=== PATIENT | female | born 1940 | race Caucasian/White ===

== ENCOUNTER 2017-06-10 09:08 | Inpatient (IN) ==
[2017-06-10] MEDS ORDERED: ONDANSETRON 4 MG/2 ML VIAL IV STA (09:37)
[2017-06-10] MEDS ORDERED: SODIUM CHLORIDE 0.9% 500 ML IV STA (09:37)
[2017-06-10] MEDS ORDERED: MECLIZINE 25 MG TABLET PO STA (09:37)
--- NOTE | 2017-06-10 09:54 | Emergency Department Note ---
Mich Ledbetter Brittany, am scribing for, and in the presence of, Armani Espinal MD 09:44. Kylie Ledbetter Charles R, MD, personally performed the services described in this documentation, ascribed by Madonna Epps in my presence, and it is both accurate and complete [id number] . Arrival - Arrival Chief Complaint: Dizziness Stated Complaint: DIZZINESS,VOMITING ED Nursing Triage Note: PT STATES SHE WOKE UP TO A "THUNDER" NOISE IN HER HEAD, SO SHE GOT UP TO LOOK OUTSIDE AND BECAME VERY DIZZY, REALIZING THE NOISE WAS IN HER HEAD FOLLOWED BY VOMITING. PT DENIES HEADACHE. Mode of Arrival: Wheelchair Limitations: No Limitations Source: Patient, RN Notes Reviewed Time Seen by Provider: 06/10/17 09:22 - History of Present Illness HPI Narrative: Patient is a 76 y/o white female presenting to the ED for further evaluation of vertigo that onset this morning. Patient reports that upon waking she kept hearing what she describes as a thunderclap. Patient states that upon initially hearing this sound she got up to look outside the window to see if it was storming and upon realizing that there were no storms outside that she was hearing this sound in her head which alarmed her. Patient denies this being a headache, but describes a headache. Patient has a history of Migraines, but denies this current sensation being similar to typical Migraine headaches. Patient reports having some associated symptoms of vertigo, near syncope, and nausea. Patient denies having any chest pain, abdominal pain, neck pain, arm pain, or back pain. 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 PMHx of GERD, HTN, denies history of IDDM, NIDDM, CVA, or [place]. No other complaints. Allergies/Adverse Reactions: Allergies Allergy/AdvReac Type Severity Reaction Status Date / Time ketorolac [From Toradol] Allergy RASH Verified 06/10/17 09:15 Sulfa (Sulfonamide Allergy RASH Verified 06/10/17 09:15 Antibiotics) Home Medications: Home Medications Medication Instructions Recorded Confirmed Type Albuterol Sulfate [Albuterol 2.5 ml PO BID 02/22/17 05/21/17 History Liquid] Alendronate Sodium 35 mg PO Q7D 02/22/17 05/21/17 History Aspirin [Aspirin EC] 81 mg PO DAILY 02/22/17 05/21/17 History Calcium (Carb)/Vit D 600-400 1 tablet PO DAILY 02/22/17 05/21/17 History [Caltrate 600 + D] Cholecalciferol (Vitamin D3) 5,000 unit PO DAILY 02/22/17 05/21/17 History [Vitamin D3] Dexamethasone [Dexamethasone Tab] 2 mg PO Q3D 02/22/17 05/21/17 History Ferrous Sulfate Tab [Feosol 325 mg PO BID 02/22/17 05/21/17 History Original Tab] Loratadine Tab [Claritin Tab] 10 mg PO DAILY 02/22/17 05/21/17 History Montelukast Tab [Singulair Tab] 10 mg PO DAILY 02/22/17 05/21/17 History Multivitamin [Multivitamins] 1 each PO DAILY 02/22/17 05/21/17 History Omeprazole [Prilosec] 40 mg PO DAILY 02/22/17 05/21/17 History Theophylline ER Tab 150 mg PO BID 02/22/17 05/21/17 History Thyroid [[place] Thyroid] 30 mg PO DAILY 02/22/17 05/21/17 History Valsartan 160 mg PO DAILY 02/22/17 05/21/17 History traMADol TAB [Ultram] 50 mg PO Q6H PRN 02/22/17 05/21/17 History Albuterol/Ipratropium Neb [Duoneb] 3 ml RESP TX RT Q6H PRN 05/12/17 05/21/17 History Diclofenac 1% Gel [Voltaren 1% Gel] 1 applic TOP QID PRN 05/12/17 05/21/17 History [place]-3/Dha/Epa/Fish Oil [Fish Oil 1 each PO DAILY 05/12/17 05/21/17 History EC 1,200 mg Softgel] Polyethylene Glycol Powder 17 gm PO DAILY PRN 05/12/17 05/21/17 History [Miralax] Review of System - Review of System 12 point system: reviewed and no additional remarkable complaints except as stated - Review of System Eyes: Absent: vision change Head/Ears/Nose/Throat: Present: other ("thunderclap sounds") Gastrointestinal: Present: nausea. Absent: vomiting Neurological: Present: vertigo. Absent: headache Medical,Surgical,& Family Hx - Medical History Cardio: History of: Hypertension Neurology: History of: Migraine No history of: Seizures HEENT: History of: Eye Problem (glasses), Dental Problems (dentures) Endocrine: History of: Thyroid Disorder Respiratory: History of: Bronchitis, COPD, Pneumonia Gastrointestinal: History of: Diverticulitis/ Diverticulosis, GERD, Hemorrhoids Musculoskeletal: History of: Back/Neck Problems, Osteoporosis Hematology: History of: Anemia (takes iron) Other: History of: Cancer (skin cancer) - Surgical History HEENT Surgeries: Surgical HX of: Eye Surgery (cataract, retna surgery) Abdominal Surgeries: Surgical HX of: Abdominal Surgery, Appendectomy, Cholecystectomy, Colonoscopy, EGD Reproductive Surgeries: Surgical HX of;: Gynecologic Surgery, Hysterectomy Orthopedic Surgeries: Surgical HX of;: Orthopedic Surgery (shoulder, knee), Total Knee Replacement - Family History Family History: Reports;: Family Heart Disease (mother, sister), Family Hypertension Denies;: Family Anesthesia Reaction, Family Cancer (father - lung ca, sister - colon/rectal ca), Family Diabetes, Family Psychiatric Problems, Family Stroke - Social History Smoking Status: Never smoker Frequency of Alcohol Use: None Type of Drug Use: None Exam Vital Signs: Vital Signs Temperature 97.8 F 06/10/17 09:28 Pulse Rate 85 06/10/17 09:28 Respiratory Rate 18 06/10/17 09:28 Blood Pressure 173/76 06/10/17 09:28 O2 Sat by Pulse Oximetry 96 06/10/17 09:12 - General General appearance: alert, in no apparent distress, other (closes eyes on the examination table displaying obvious dizziness) - Head Head exam: Present: atraumatic, normocephalic, normal inspection - Eye Eye exam: Present: PERRL, EOMI, nystagmus (bilaterally). Absent: normal appearance (blind in R eye) - ENT ENT exam: Present: normal exam, normal oropharynx - Neck Neck exam: Present: normal inspection, full ROM, trachea midline - Chest Chest inspection: Present: normal inspection, symmetric chest wall rise - Respiratory Respiratory exam: Present: normal lung sounds bilaterally - Cardiovascular Cardiovascular exam: Present: regular rate, normal rhythm, normal heart sounds - Abdominal Exam Abdominal exam: Present: soft, normal bowel sounds. Absent: tenderness - Extremities Exam Extremities exam: Present: normal inspection - Back Exam Back exam: Present: normal inspection - Neurological Exam Neurological exam: Present: alert, oriented X3, CN II-XII intact. Absent: motor sensory deficit - Psychiatric Psychiatric exam: Present: normal affect, normal mood - Skin Skin exam: Present: warm, dry Course - Reevaluation(s) Reevaluation #1: Patient is still symptomatic still dizzy still nauseated still feeling weak even though she has a normal workup. Patient does not have a headache never had a headache just had a thunder moves sensation in her brain/head Time: 12:24 - Consultations Consultation #1: Hospitalist will admit patient Time: 12:24 Results - Labs CBC & BMP: 06/10/17 10:05 06/10/17 10:05 Lab Results: I have reviewed the patients labs Labs: Laboratory Tests 06/10/17 10:05 WBC 13.2 H RBC 5.22 Hgb 14.4 Hct 45.4 MCHC 31.7 L Plt Count 242 Lymph % (Auto) 15.3 L Neut # (Auto) 9.7 H [place] # (Auto) 0.9 H Laboratory Tests 06/10/17 10:05 INR 1.0 PT Patient/Control Mix 10.2 Laboratory Tests 06/10/17 06/10/17 10:05 10:05 Sodium 143 Potassium 4.0 Chloride 106 Carbon Dioxide 30 BUN 24 H Creatinine 1.10 H BUN/Creatinine Ratio 21.00 H Glucose 104 Troponin I < 0.015 B-Natriuretic Peptide 85 Total Protein 6.4 Laboratory Tests 06/10/17 11:24 Urine Color Yellow Urine Appearance Clear Urine pH 5.0 Ur Specific [place] 1.015 Urine Protein Negative Urine Glucose (UA) Negative Urine Ketones Negative Urine Blood Negative Urine Nitrate Negative Urine Bilirubin Negative Urine Urobilinogen < 2.0 H Urine Leukocytes Negative Urine RBC 2 Urine WBC 1 Ur Squamous Epith Cells Occasional Urine Mucus Occasional - Diagnostic Findings Procedure: Chest x-ray: report reviewed by me (1. Stable mild cardiomegaly. 2. Prominent hiatal hernia. 3. Mild new right basilar atelectasis.), CT: report reviewed by me (CT Head: Stable white matter changes, likely related to chronic microvascular ischemia. No acute intracranial process is seen.) Disposition Clinical Impression: Benign paroxysmal positional vertigo, Nausea & vomiting, Generalized weakness Case discussed with: patient, patient's family Disposition: Still a Patient Condition: Stable Time of Disposition: 12:25
[2017-06-10] MEDS ORDERED: ONDANSETRON 4 MG/2 ML VIAL ONE (09:59)
[2017-06-10] MEDS ORDERED: MECLIZINE 25 MG TABLET ONE (10:00)
--- NOTE | 2017-06-10 10:02 | CT Report ---
CT of the head without contrast. Indication: Dizziness. Comparison: July 16, 2010. There is calcific plaque present within the intracranial internal carotid arteries. There is generalized prominence of the ventricles and sulci consistent with atrophy of aging. There is no mass effect or midline shift. There is no evidence of acute hemorrhage. No cortical infarcts are seen at this time. There are mild stable areas of low density within the periventricular white matter. The calvarium is intact. Included paranasal sinuses and the mastoid air cells are clear. Impression: Stable white matter changes, likely related to chronic microvascular ischemia. No acute intracranial process is seen. The CT exam was performed using one or more of the following dose reduction techniques: Automated exposure control, adjustment of the mA and/or kV according to patient size, or use of iterative reconstruction technique. PROCEDURE INTERPRETED AT [facility] DEPARTMENT OF RADIOLOGY Final Report Signed by: Dr. Yajaira Monk
--- NOTE | 2017-06-10 10:04 | XRay Report ---
Single view of the chest. Indication: Shortness of breath. Comparison: February 22, 2017. The heart is enlarged. There is a large hiatal hernia present. The pulmonary vasculature is normal. The lung thomas are free of infiltrate. There is mild new atelectasis at the right base. No pneumothorax. No pleural effusion. Degenerative changes of both shoulders. Impression: 1. Stable mild cardiomegaly. 2. Prominent hiatal hernia. 3. Mild new right basilar atelectasis. PROCEDURE INTERPRETED AT [facility] DEPARTMENT OF RADIOLOGY Final Report Signed by: Dr. Yajaira Monk
[2017-06-10 10:28] LABS: Basophils # 0.1 10*3/uL (0.0-0.2); Basophils % 0.6 % (0.0-0.8); Eosinophils # 0.5 10*3/uL (0.0-0.87); Eosinophils % 3.6 % (0.00-10.9); Hematocrit 45.4 VOL% (35.7-47.0); Hemoglobin 14.4 GM/DL (12.0-16.0); Immature Granulocytes % 0.5 %; Immature Granulocytes Absolute 0.06 #; Lymphocytes % 15.3 % (21.3-54.2); Mean Corpuscular HGB Conc 31.7 GM/DL (32-36); Mean Corpuscular Hemoglobin 28 PG (27-34); Mean Platelet Volume 10.1 FL (9.6-12.0); Monocytes # 0.9 10*3/uL (0.11-0.8); Monocytes % 6.6 % (1.7-12.7); Neutrophils # 9.7 10*3/uL (1.4-7.4); Neutrophils % 73.4 % (38.7-73.9); Platelet Count 242 T/CUMM (130-400); Red Blood Count 5.22 MC/CUMM (3.8-5.5); Red Cell Distribution Width 13.3 % (9.3-17.3); White Blood Count 13.2 T/CUMM (4-12)
[2017-06-10 10:38] LABS: PT Patient Result 10.2 SECS
[2017-06-10 11:04] LABS: Alanine Aminotransferase 21 U/L (13-56); Albumin 3.4 G/DL (3.4-5.0); Alkaline Phosphatase 64 U/L (45-117); Aspartate Amino Transferase 14 U/L (0-37); Blood Urea Nitrogen 24 MG/DL (7-18); Calcium 9.2 MG/DL (8.5-10.1); Glucose 104 MG/DL (74-106); Magnesium 2.3 MG/DL (1.8-2.4); Sodium 143 MMOL/L (136-145); Total Protein 6.4 G/DL (6.4-8.3); Troponin I Only < 0.015 NG/ML (0.00-0.045)
[2017-06-10 11:37] LABS: Apearance,Urine CLEAR (Clear); Bilirubin,Urine Negative (Negative); Blood, Urine Negative (Negative); Glucose,Urine (UA) Negative (Negative); Ketones,Urine Negative (Negative); Mucus,Urine Occasional /LPF (Occasional); Nitrite,Urine Negative (Negative); Protein,Urine Negative; RBC,Urine 2 /HPF (0-4); Squamous Epithelial Cell,Urine Occasional /HPF (0-10); Urine Color Yellow (Yellow); Urine Specific Gravity 1.015 (1.001-1.035); Urine Urobilinogen < 2.0 EU/DL (0.2-1.0); WBC,Urine 1 /HPF (0-6)
[2017-06-10] MEDS ORDERED: ACETAMINOPHEN 325 MG TABLET PO PRN (14:33)
--- NOTE | 2017-06-10 15:35 | Hospitalist History & Physical ---
<Diogenes Richey - Last Filed: 06/10/17 16:53> History of Present Illness History of present illness: Patient seen and examined independently of MIDDLE STITCHER Franco, agree with history, assessment and plan as documented. 76 y/o WF who reports hearing thunder this morning, when she went to investigate she discovered that the sound was in her head. This was associated with dizziness, nausea and vomiting. She now reports seeing a black dot when she closes her eyes. Patient is blind in her right eye. CT head in the ED did not show an acute process. Will check an MRI. Obtain orthostatic vitals, place on heart monitor. Will consult neurology. Will also check a tsh, free t4 and theophylline level Home Medications Medication Instructions Recorded Confirmed Type Albuterol Sulfate [Albuterol 2.5 ml PO BID 02/22/17 06/10/17 History Liquid] Alendronate Sodium 35 mg PO TU 02/22/17 06/10/17 History Aspirin [Aspirin EC] 81 mg PO QAM 02/22/17 06/10/17 History Cholecalciferol (Vitamin D3) 5,000 unit PO QA 02/22/17 06/10/17 History [Vitamin D3] Dexamethasone [Dexamethasone Tab] 2 mg PO QOTHER DAY 02/22/17 06/10/17 History Ferrous Sulfate Tab [Feosol 325 mg PO BID 02/22/17 06/10/17 History Original Tab] Loratadine Tab [Claritin Tab] 10 mg PO QAM 02/22/17 06/10/17 History Montelukast Tab [Singulair Tab] 10 mg PO BEDTIME 02/22/17 06/10/17 History Multivitamin [Multivitamins] 1 each PO QAM 02/22/17 06/10/17 History Omeprazole [Prilosec] 40 mg PO QAM 02/22/17 06/10/17 History Theophylline ER Tab 150 mg PO BID 02/22/17 06/10/17 History Valsartan 160 mg PO QAM 02/22/17 06/10/17 History Albuterol/Ipratropium Neb [Duoneb] 3 ml RESP TX RT Q6H PRN 05/12/17 06/10/17 History [place]-3/Dha/Epa/Fish Oil [Fish Oil 1 each PO QAM 05/12/17 06/10/17 History EC 1,200 mg Softgel] Polyethylene Glycol Powder 17 gm PO DAILY PRN 05/12/17 06/10/17 History [Miralax] Albuterol Liquid [Proventil Liquid] 2 mg PO TID 06/10/17 06/10/17 History Calcium Carbonate/Vitamin D3 1 each PO QAM 06/10/17 06/10/17 History [Calcium 600-Vit D3 800 Tablet] Thyroid [[place] Thyroid] 60 mg PO DAILY@0700 06/10/17 06/10/17 History Tramadol HCl [Tramadol Tab] 50 mg PO Q6H PRN 06/10/17 06/10/17 History Allergies Allergy/AdvReac Type Severity Reaction Status Date / Time ketorolac [From Toradol] Allergy RASH Verified 06/10/17 09:15 Sulfa (Sulfonamide Allergy RASH Verified 06/10/17 09:15 Antibiotics) Exam - Constitutional Vitals: Period Temp Pulse Resp BP Sys/[place] Pulse Ox Last 24 Hr 97.8 F-97.9 F 80-85 17-20 152-173/70-78 96-98 Results - Labs CBC & BMP: 06/10/17 10:05 06/10/17 10:05 <Melvin Francomichaelnunuyany - Last Filed: 06/10/17 17:16> Assessment and Plan (1) Benign paroxysmal positional vertigo Status: Acute Assessment and plan: Admit to monitored bed. Consult neuro to evaluate. TSH in am. CT negative. MRI pending. Orthostatic vital signs. Current Visit: Yes (2) Generalized weakness Status: Acute Current Visit: Yes (3) Nausea & vomiting Status: Acute Assessment and plan: prn jemma Current Visit: Yes History of Present Illness Chief complaint: dizziness/nausea History of present illness: Ms. Herring is a 76 year old white female with a history of hypertension, migraine , thyroid disorder and bronchitis, COPD, and pneumonia that presented to the ED for further evaluation of symptoms that started this morning. Patient states that this morning when she woke up she heard which she describes as loud claps of thunder. This noise persisted for a while and she got up to look out the window. It was at that point she realized there were no storms outside. She became alarmed and also dizzy. Pt. also reports near syncope and nausea. Pt. denies any chest pain but mild shortness of breath which is common because she has COPD. Pt. states she called her daughter for assistance. She was brought into the ED. CT head was negative. Pt. was admitted. She was examined in room 242 with daughter present. Neuro will be consulted. Case has been discussed with Dr. Richey. Medical,Surgical,& Family Hx - Medical History Cardio: History of: Hypertension Neurology: History of: Migraine No history of: Seizures HEENT: History of: Eye Problem (glasses), Dental Problems (dentures) Endocrine: History of: Thyroid Disorder Respiratory: History of: Bronchitis, COPD, Pneumonia Gastrointestinal: History of: Diverticulitis/ Diverticulosis, GERD, Hemorrhoids , GI Problems (hernia) Musculoskeletal: History of: Back/Neck Problems, Osteoporosis Hematology: History of: Anemia (takes iron) Other: History of: Cancer (skin cancer) - Surgical History HEENT Surgeries: Surgical HX of: Eye Surgery (cataract, retna surgery) Abdominal Surgeries: Surgical HX of: Abdominal Surgery, Appendectomy, Cholecystectomy, Colonoscopy, EGD Reproductive Surgeries: Surgical HX of;: Gynecologic Surgery, Hysterectomy Orthopedic Surgeries: Surgical HX of;: Orthopedic Surgery (shoulder, knee ( miniscus tear)), Total Knee Replacement - Family History Family History: Reports;: Family Heart Disease (mother, sister), Family Hypertension Denies;: Family Anesthesia Reaction, Family Cancer (father - lung ca, sister - colon/rectal ca), Family Diabetes, Family Psychiatric Problems, Family Stroke - Social History Smoking Status: Never smoker Frequency of Alcohol Use: None Type of Drug Use: None Lives With:: Alone Functional capacity: independent ambulation - Constitutional Constitutional: Absent: chills, fever(s), night sweats - EENT Eyes: Present: blurry vision Ears: Present: other (loud claps of thunder heard in ears). Absent: ear pain, tinnitus - Cardiovascular Cardiovascular: Present: dyspnea on exertion. Absent: edema - Gastrointestinal Gastrointestinal: Present: nausea. Absent: abdominal pain - Genitourinary Genitourinary: Absent: difficulty urinating - Neurological Neurological: Present: dizziness. Absent: confusion Exam - Constitutional Vitals: Period Temp Pulse Resp BP Sys/[place]ivera Pulse Ox Last 24 Hr 97.8 F-97.9 F 80-85 17-20 152-173/70-78 96-98 General appearance: no acute distress, over weight - Head Head exam: Present: normal inspection, normocephalic - Eye Eye exam: Present: EOMI Pupils: Present: DAVE - Respiratory Respiratory exam: Present: clear to auscultation bilaterally. Absent: wheezes - Cardiovascular Cardiovascular exam: Present: regular rate and rhythm - GI/Abdominal GI/Abdominal exam: Present: normal bowel sounds, soft. Absent: tenderness - Extremities Exam Extremities exam: Present: normal capillary refill, full ROM. Absent: edema - Neurological Exam Neurological exam: Present: alert, oriented X3 - Psychiatric Psychiatric exam: Present: normal affect, normal mood Results - Labs CBC & BMP: 06/10/17 10:05 06/10/17 10:05 Lab Results: I have reviewed the past 24 hour labs
[2017-06-10] MEDS: SODIUM CHLORIDE 0.9% 1,000 ML IV SCH (15:57)
[2017-06-10] MEDS ORDERED: ALBUTEROL/IPRATROPIUM 3 ML NEB RESP TX PRN (16:17)
[2017-06-10] MEDS ORDERED: POLYETHYLENE GLYCOL POWDER 17 GM PACK PO PRN (16:17)
[2017-06-10] MEDS ORDERED: traMADol 50 MG TABLET PO PRN (16:17)
[2017-06-10] MEDS ORDERED: ONDANSETRON 4 MG/2 ML VIAL IV PRN (16:52)
[2017-06-10] MEDS: FERROUS SULFATE 325 MG TABLET PO SCH (20:46)
[2017-06-10] MEDS: MONTELUKAST 10 MG TABLET PO SCH (20:46)
[2017-06-10] MEDS: ALBUTEROL 0.4 MG/ML 30 ML/BOTTLE PO SCH (20:47)
[2017-06-10] MEDS ORDERED: THEOPHYLLINE ER 300 MG TABLET PO SCH (21:00)
[2017-06-11] MEDS: THYROID 60 MG TABLET PO SCH (06:32)
[2017-06-11 06:49] LABS: Basophils # 0.1 10*3/uL (0.0-0.2); Basophils % 0.9 % (0.0-0.8); Eosinophils # 0.3 10*3/uL (0.0-0.87); Eosinophils % 4.7 % (0.00-10.9); Hematocrit 41.7 VOL% (35.7-47.0); Hemoglobin 12.8 GM/DL (12.0-16.0); Immature Granulocytes % 0.3 %; Immature Granulocytes Absolute 0.02 #; Lymphocytes # 1.8 10*3/uL (1.4-4.0); Lymphocytes % 27.7 % (21.3-54.2); Mean Corpuscular HGB Conc 30.7 GM/DL (32-36); Mean Corpuscular Hemoglobin 28 PG (27-34); Mean Corpuscular Volume 89.5 FL (87-102); Mean Platelet Volume 10.1 FL (9.6-12.0); Monocytes # 0.7 10*3/uL (0.11-0.8); Monocytes % 10.6 % (1.7-12.7); Neutrophils # 3.6 10*3/uL (1.4-7.4); Neutrophils % 55.8 % (38.7-73.9); Platelet Count 196 T/CUMM (130-400); Red Blood Count 4.66 MC/CUMM (3.8-5.5); Red Cell Distribution Width 13.4 % (9.3-17.3); White Blood Count 6.4 T/CUMM (4-12)
[2017-06-11 07:39] LABS: Calcium 8.5 MG/DL (8.5-10.1); Free T4 (Free Thyroxine) 1.03 NG/DL (0.76-1.46); Magnesium 2.5 MG/DL (1.8-2.4); Osmolality,Calculated 287.7 MOS/KG (273-304); Potassium 4.1 MMOL/L (3.5-5.1); Risk Ratio 3.81; Thyroid Stimulating Hormone 1.01 uIU/ml (0.358-3.74); VLDL CHOLESTEROL 21.4 MG/DL
[2017-06-11] MEDS: FERROUS SULFATE 325 MG TABLET PO SCH ×2 (09:52→20:30)
[2017-06-11] MEDS: CALCIUM (CARBONATE)/VITAMIN D 600 MG-400 UNIT TABLET PO SCH (09:52)
[2017-06-11] MEDS: PANTOPRAZOLE 40 MG TABLET PO SCH (09:52)
[2017-06-11] MEDS: LORATADINE 10 MG TABLET PO SCH (09:52)
[2017-06-11] MEDS: CHOLECALCIFEROL 1,000 UNIT TABLET PO SCH (09:52)
[2017-06-11] MEDS: ALBUTEROL 0.4 MG/ML 30 ML/BOTTLE PO SCH ×3 (09:53→21:00)
[2017-06-11] MEDS: SODIUM CHLORIDE 0.9% 1,000 ML IV SCH (12:08)
--- NOTE | 2017-06-11 15:14 | Neurology Consult Note ---
History of Present Illness History of present illness: Ms. Herring is a 76 year old right-handed white lady with a history of hypertension , migraine, thyroid disorder and bronchitis, COPD, and pneumonia that presented to the ED for further evaluation of symptoms that started yesterday morning. Patient reported that yesterday morning when she woke up she heard which she describes as loud claps of thunder. This noise persisted for a while and she got up to look out the window. It was at that point she realized there were no storms outside. She denies having any headache but clearly seriously that it was tender sound in the ear. She became alarmed and also dizzy. She was also developed nausea and vomiting. Daughter reported that she has been having headache for last 2-3 weeks. Pt. states she called her daughter for assistance. She was brought into the ED. CT head was negative. Pt. was admitted. MRI has been ordered. She never had a stroke in her life. She lives by herself during the day but somebody is there all the time at night. Home Medications Medication Instructions Recorded Confirmed Type Albuterol Sulfate [Albuterol 2.5 ml PO BID 02/22/17 06/10/17 History Liquid] Alendronate Sodium 35 mg PO TU 02/22/17 06/10/17 History Aspirin [Aspirin EC] 81 mg PO QAM 02/22/17 06/10/17 History Cholecalciferol (Vitamin D3) 5,000 unit PO QAM 02/22/17 06/10/17 History [Vitamin D3] Dexamethasone [Dexamethasone Tab] 2 mg PO QOTHER DAY 02/22/17 06/10/17 History Ferrous Sulfate Tab [Feosol 325 mg PO BID 02/22/17 06/10/17 History Original Tab] Loratadine Tab [Claritin Tab] 10 mg PO QAM 02/22/17 06/10/17 History Montelukast Tab [Singulair Tab] 10 mg PO BEDTIME 02/22/17 06/10/17 History Multivitamin [Multivitamins] 1 each PO QAM 02/22/17 06/10/17 History Omeprazole [Prilosec] 40 mg PO QAM 02/22/17 06/10/17 History Theophylline ER Tab 150 mg PO BID 02/22/17 06/10/17 History Valsartan 160 mg PO QAM 02/22/17 06/10/17 History Albuterol/Ipratropium Neb [Duoneb] 3 ml RESP TX RT Q6H PRN 05/12/17 06/10/17 History [place]-3/Dha/Epa/Fish Oil [Fish Oil 1 each PO QAM 05/12/17 06/10/17 History EC 1,200 mg Softgel] Polyethylene Glycol Powder 17 gm PO DAILY PRN 05/12/17 06/10/17 History [Miralax] Albuterol Liquid [Proventil Liquid] 2 mg PO TID 06/10/17 06/10/17 History Calcium Carbonate/Vitamin D3 1 each PO QAM 06/10/17 06/10/17 History [Calcium 600-Vit D3 800 Tablet] Thyroid [[place] Thyroid] 60 mg PO DAILY@0700 06/10/17 06/10/17 History Tramadol HCl [Tramadol Tab] 50 mg PO Q6H PRN 06/10/17 06/10/17 History Allergies Allergy/AdvReac Type Severity Reaction Status Date / Time ketorolac [From Toradol] Allergy RASH Verified 06/10/17 09:15 Sulfa (Sulfonamide Allergy RASH Verified 06/10/17 09:15 Antibiotics) 12 point system: reviewed and no additional remarkable complaints except as stated Medical,Surgical,& Family Hx - Medical History Cardio: History of: Hypertension Neurology: History of: Migraine No history of: Seizures HEENT: History of: Eye Problem (glasses), Dental Problems (dentures) Endocrine: History of: Thyroid Disorder Respiratory: History of: Bronchitis, COPD, Pneumonia Gastrointestinal: History of: Diverticulitis/ Diverticulosis, GERD, Hemorrhoids , GI Problems (hernia) Musculoskeletal: History of: Back/Neck Problems, Osteoporosis Hematology: History of: Anemia (takes iron) Other: History of: Cancer (skin cancer) - Surgical History HEENT Surgeries: Surgical HX of: Eye Surgery (cataract, retna surgery) Abdominal Surgeries: Surgical HX of: Abdominal Surgery, Appendectomy, Cholecystectomy, Colonoscopy, EGD Reproductive Surgeries: Surgical HX of;: Gynecologic Surgery, Hysterectomy Orthopedic Surgeries: Surgical HX of;: Orthopedic Surgery (shoulder, knee ( miniscus tear)), Total Knee Replacement - Family History Family History: Reports;: Family Heart Disease (mother, sister), Family Hypertension Denies;: Family Anesthesia Reaction, Family Cancer (father - lung ca, sister - colon/rectal ca), Family Diabetes, Family Psychiatric Problems, Family Stroke - Social History Smoking Status: Never smoker Frequency of Alcohol Use: None Type of Drug Use: None Exam - Constitutional Vitals: Period Temp Pulse Resp BP Sys/[place]iver[place] Pulse Ox Last 24 Hr 96 F-101.1 F 84-100 15-28 127-148/47-71 91-95 Exam: GENERAL: Patient is in no acute distress. NECK: Neck is supple. There is no JVD. No carotid bruits present. No thyroid masses. CVS: First and second heart sounds are normal. There is no S3 present. Regular rate and rhythm. RESPIRATORY: Lungs are clear to auscultation without any rales or rhonchi. ABDOMEN: Soft and non-tender. Bowel sounds are present. There is no hepatosplenomegaly. EXT: There is no palpable edema. Peripheral pulses are present. Skin: No rashes Central Nervous system: General: Alert, awake and Oriented x 3 Speech: Fluent Comprehension: Intact and normal Facial expressions: Normal Cranial Nerves: CN1/Olfactory: Normal CN II/ Optic: Normal, Visual Villaseñor unreliable CN III, and : DAVE & EOMI CN V: Normal & intact CN VII: face is symmetric CNVIII: Normal CN XI/X/XI/XII: Intact and Normal Motor: Bulk and Tone is normal. Strength in the right 3-4/5 Strength in the left 3-4/5 Sensory: Grossly intact for all the modalities of PP, LT and temp sense Reflexes: 1+ and symmetrical Cerebellar function: Normal finger to nose and heel to perez testing. Toes: Equivocal Gait: Not tested Results - Labs CBC & BMP: 06/11/17 06:29 06/11/17 06:29 Assessment and Plan (1) New onset headache Status: Acute Assessment and plan: Agree with MRI of the brain. Current Visit: Yes (2) Dizziness and giddiness Status: Acute Assessment and plan: This could very well be due to labyrinthitis or possibly basilar migraine. Continue current management. She seems to be feeling better Thank you for the consult We will follow her along with you Current Visit: Yes
--- NOTE | 2017-06-11 16:17 | Hospitalist Progress Note ---
Assessment and Plan (1) Dizziness Status: Acute Assessment and plan: With associated N/V MRI pending Neurology on board Orthostatic vitals negative Current Visit: Yes (2) Nausea & vomiting Status: Acute Current Visit: Yes (3) New onset headache Status: Acute Current Visit: Yes Hospitalist: Subjective Interval history: No acute events overnight. Patient feels better today. She does still have dizziness with movement. Exam - Constitutional Vitals: Period Temp Pulse Resp BP Sys/Rivera Pulse Ox Last 24 Hr 96 F-101.1 F 84-100 15-28 127-148/47-71 91-95 General appearance: over weight - Head Head exam: Present: normocephalic, atraumatic - Eye Eye exam: Present: EOMI Pupils: Present: DAVE - ENT ENT exam: Present: normal exam - Neck Neck exam: Present: normal inspection - Respiratory Respiratory exam: Present: clear to auscultation bilaterally. Absent: rhonchi, wheezes - Cardiovascular Cardiovascular exam: Present: regular rate and rhythm - GI/Abdominal GI/Abdominal exam: Present: normal bowel sounds, soft. Absent: tenderness, rebound - Extremities Exam Extremities exam: Present: normal inspection - Back Exam Back exam: Present: normal inspection - Neurological Exam Neurological exam: Present: alert, oriented X3 - Psychiatric Psychiatric exam: Present: normal affect, normal mood - Skin Skin exam: Present: warm, intact Results - Labs CBC & BMP: 06/11/17 06:29 06/11/17 06:29
--- NOTE | 2017-06-11 16:24 | Magnetic Resonance Report ---
Exam: MR head/brain wo con Date: 06/11/2017 4:00 AM Comparison: CT brain 06/10/2017 Indication: Dizziness, vomiting Technique:[Multiple acquisitions were obtained including sagittal T1, coronal T2, and axial ADC, diffusion, FLAIR, T2, GRE, and T1 scans without contrast only. Scans were obtained on a 1.5 Adia magnet.] Findings: The ventricles are normal in size with no midline displacement. The pituitary has a normal appearance and the cerebellar tonsils are normal in their location. No acute infarction is identified on the diffusion scans. No evidence of hemorrhage, mass, or extracerebral collection. Diffuse atrophy with scattered FLAIR/T2 hyperintensities. Enlarged perivascular spaces which represent a normal variant. Minimal mucosal thickening/fluid in the paranasal sinuses. No acute findings in the orbits, temporal bones, or [place]. Impression: No acute intracranial pathology identified. Persistent diffuse cerebral atrophy with minimal microvascular disease. Minimal mucosal thickening in the paranasal sinuses. PROCEDURE INTERPRETED AT [facility] DEPARTMENT OF RADIOLOGY Final Report Signed by: Dr. Nadine Ku
[2017-06-11] MEDS: MONTELUKAST 10 MG TABLET PO SCH (20:30)
[2017-06-12 03:07] LABS: Basophils # 0.1 10*3/uL (0.0-0.2); Basophils % 0.6 % (0.0-0.8); Eosinophils # 0.4 10*3/uL (0.0-0.87); Eosinophils % 4.5 % (0.00-10.9); Hematocrit 39.6 VOL% (35.7-47.0); Hemoglobin 12.3 GM/DL (12.0-16.0); Immature Granulocytes % 0.1 %; Immature Granulocytes Absolute 0.01 #; Lymphocytes # 1.8 10*3/uL (1.4-4.0); Lymphocytes % 22.9 % (21.3-54.2); Mean Corpuscular HGB Conc 31.1 GM/DL (32-36); Mean Corpuscular Hemoglobin 28 PG (27-34); Mean Corpuscular Volume 88.8 FL (87-102); Mean Platelet Volume 9.9 FL (9.6-12.0); Monocytes # 0.8 10*3/uL (0.11-0.8); Monocytes % 10.3 % (1.7-12.7); Neutrophils # 4.8 10*3/uL (1.4-7.4); Neutrophils % 61.6 % (38.7-73.9); Platelet Count 171 T/CUMM (130-400); Red Blood Count 4.46 MC/CUMM (3.8-5.5); Red Cell Distribution Width 13.2 % (9.3-17.3); White Blood Count 7.7 T/CUMM (4-12)
[2017-06-12 03:40] LABS: Calcium 8.7 MG/DL (8.5-10.1); Osmolality,Calculated 290.4 MOS/KG (273-304); Potassium 3.9 MMOL/L (3.5-5.1)
[2017-06-12 03:41] LABS: Calcium 8.7 MG/DL (8.5-10.1); Magnesium 2.3 MG/DL (1.8-2.4); Osmolality,Calculated 284.8 MOS/KG (273-304); Potassium 3.9 MMOL/L (3.5-5.1)
[2017-06-12] MEDS: THYROID 60 MG TABLET PO SCH (06:37)
[2017-06-12] MEDS ORDERED: DEXAMETHASONE 4 MG TABLET PO SCH (09:00)
[2017-06-12] MEDS: CHOLECALCIFEROL 1,000 UNIT TABLET PO SCH (10:00)
[2017-06-12] MEDS: FERROUS SULFATE 325 MG TABLET PO SCH (10:01)
[2017-06-12] MEDS: LORATADINE 10 MG TABLET PO SCH (10:01)
[2017-06-12] MEDS: PANTOPRAZOLE 40 MG TABLET PO SCH (10:01)
[2017-06-12] MEDS: CALCIUM (CARBONATE)/VITAMIN D 600 MG-400 UNIT TABLET PO SCH (10:01)
[2017-06-12 12:11] VITALS: BP 157/77
[2017-06-12] MEDS: SODIUM CHLORIDE 0.9% 1,000 ML IV SCH (12:32)
[2017-06-12] MEDS ORDERED: BUTALBITAL/ACETAMIN/CAFFEINE 50-325-40 MG TABLET PO PRN (12:39)
--- NOTE | 2017-06-12 12:39 | Neurology Progress Note ---
Neurology - PN : Subjective Interval history: Patient seems to be doing much better. She had slight headache this morning and heard thunder type issue again this morning as well. However she is doing pretty well at this point. MRI of the brain is unremarkable for any acute pathology. Exam (Progress Note) - Constitutional Vitals: Period Temp Pulse Resp BP Sys/Rivera Pulse Ox Last 24 Hr 97.4 F-98.7 F 80-96 0-24 138-167/69-78 91-97 Exam: GENERAL: Patient is in no acute distress. NECK: Neck is supple. There is no JVD. No carotid bruits present. No thyroid masses. CVS: First and second heart sounds are normal. There is no S3 present. Regular rate and rhythm. RESPIRATORY: Lungs are clear to auscultation without any rales or rhonchi. ABDOMEN: Soft and non-tender. Bowel sounds are present. There is no hepatosplenomegaly. EXT: There is no palpable edema. Peripheral pulses are present. Skin: No rashes Central Nervous system: General: Alert, awake and Oriented x 3 Speech: Fluent Comprehension: Intact and normal Facial expressions: Normal Cranial Nerves: CN1/Olfactory: Normal CN II/ Optic: Normal, Visual [place] unreliable CN III, and : DAVE & EOMI CN V: Normal & intact CN VII: face is symmetric CNVIII: Normal CN XI/X/XI/XII: Intact and Normal Motor: Bulk and Tone is normal. Strength in the right 4/5 Strength in the left 4/5 Sensory: Grossly intact for all the modalities of PP, LT and temp sense Reflexes: 1+ and symmetrical Cerebellar function: Normal finger to nose and heel to perez testing. Toes: Equivocal Gait: Able to get up and walk Results - Labs CBC & BMP: 06/12/17 02:53 06/12/17 02:53 Assessment and Plan (1) New onset headache Status: Acute Assessment and plan: Add Elavil 25 mg p.o. at bedtime Fioricet 1 tablet every 4 to every 6 as needed Okay to go home when okay with PCP Follow-up in 4 week Sign off please call as needed Current Visit: Yes (2) Dizziness and giddiness Status: Acute Assessment and plan: This could very well be due to labyrinthitis or possibly basilar migraine. Continue current management. She seems to be feeling better Thank you for the consult We will follow her along with you Current Visit: Yes Specialty Discharge - Follow Up or Referrals Follow up with: Ace Lemus MD [Physician] - 1 Month
--- NOTE | 2017-06-12 13:58 | Discharge Summary ---
Hospital Course - Hospital Course Hospital Course: Ms. Herring is a 76 year old white female with a history of hypertension, migraine , thyroid disorder and COPD admitted with headache with associated thunderclap sound and dizziness. Orthostatic vitals were negative. CT head and MRI did not show any acute process. Neurology was consulted. She was started on Elavil with Fioicet prn. She has now reached maximal benefit of inpatient stay and will be discharged to home. She will follow-up with Dr. Lemus in 4 weeks. - Time spent with patient Time with patient DS: Greater than 30 minutes (35) Diagnosis - Discharge Diagnosis (1) Dizziness Status: Resolved (2) Nausea & vomiting Status: Resolved (3) New onset headache Status: Resolved Specialty Discharge - Follow Up or Referrals Follow up with: Ace Lemus MD [Physician] - 1 Month Discharge Plan - Discharge Data Disposition: Disch To Home/Self Care Condition at Discharge: Stable Discharge Diet: advance to your usual diet Activity: increase activity as tolerated Hygiene: no restrictions Weight Bearing at Discharge: weight bear as tolerated Contact your physician if you experience:: Shortness of breath, pain uncontrolled by pain medications - Discharge Medications New Amitriptyline [Elavil] 25 mg PO BEDTIME #30 tablet Butalbital/Acet/Caff 50-325-40 [Fioricet 50-325-40 mg Tablet] 1 tablet PO Q6H PRN #30 tablet PRN Reason: Headache Continue Albuterol Sulfate [Albuterol Liquid] 2.5 ml PO BID Alendronate Sodium 35 mg PO TU Aspirin [Aspirin EC] 81 mg PO QAM Cholecalciferol (Vitamin D3) [Vitamin D3] 5,000 unit PO QAM Dexamethasone [Dexamethasone Tab] 2 mg PO QOTHER DAY Ferrous Sulfate Tab [Feosol Original Tab] 325 mg PO BID Loratadine Tab [Claritin Tab] 10 mg PO QAM Montelukast Tab [Singulair Tab] 10 mg PO BEDTIME Omeprazole [Prilosec] 40 mg PO QAM Theophylline ER Tab 150 mg PO BID Valsartan 160 mg PO QAM Calcium Carbonate/Vitamin D3 [Calcium 600-Vit D3 800 Tablet] 1 each PO QAM Albuterol Liquid [Proventil Liquid] 2 mg PO TID Multivitamin [Multivitamins] 1 each PO QAM [place]-3/Dha/Epa/Fish Oil [Fish Oil EC 1,200 mg Softgel] 1 each PO QAM Polyethylene Glycol Powder [Miralax] 17 gm PO DAILY PRN PRN Reason: Constipation Albuterol/Ipratropium Neb [Duoneb] 3 ml RESP TX RT Q6H PRN PRN Reason: Shortness Of Breath/Wheezing Thyroid [[place] Thyroid] 60 mg PO DAILY@0700 Tramadol HCl [Tramadol Tab] 50 mg PO Q6H PRN PRN Reason: Pain - Follow Up or Referral Follow Up: Ace Leums MD [Physician] - 1 Month - Forms/Instructions Exam - Constitutional Vitals: Period Temp Pulse Resp BP Sys/Rivera Pulse Ox Last 24 Hr 97.4 F-98.7 F 80-96 0-24 138-167/69-78 91-97 General appearance: over weight - Head Head exam: Present: normocephalic, atraumatic - Eye Eye exam: Present: EOMI Pupils: Present: DAVE - ENT ENT exam: Present: normal exam - Neck Neck exam: Present: normal inspection - Respiratory Respiratory exam: Present: clear to auscultation bilaterally. Absent: rhonchi, wheezes - Cardiovascular Cardiovascular exam: Present: regular rate and rhythm - GI/Abdominal GI/Abdominal exam: Present: normal bowel sounds, soft. Absent: tenderness, rebound - Extremities Exam Extremities exam: Present: normal inspection - Back Exam Back exam: Present: normal inspection - Neurological Exam Neurological exam: Present: alert, oriented X3 - Psychiatric Psychiatric exam: Present: normal affect, normal mood - Skin Skin exam: Present: warm, intact Discharge Results Procedures and tests throughout hospitalization: Pending Orders 06/10/17 14:47 Blood Culture Stat Labs on day of discharge: Labs from last 24 hours 06/12/17 06/12/17 06/12/17 02:53 02:53 02:53 WBC 7.7 RBC 4.46 Hgb 12.3 Hct 39.6 MCV 88.8 MCH 28 MCHC 31.1 L RDW 13.2 Plt Count 171 MPV 9.9 Neut % (Auto) 61.6 Lymph % (Auto) 22.9 [place] % (Auto) 10.3 Eos % (Auto) 4.5 Baso % (Auto) 0.6 Neut # (Auto) 4.8 Lymph # (Auto) 1.8 [place] # (Auto) 0.8 Eos # (Auto) 0.4 Baso # (Auto) 0.1 Immature Gran % 0.1 Nucleated RBC % 0.0 Immature Gran # 0.01 Nucleated RBCs # 0.00 Immature Plt Fraction 0.0 Sodium 144 147 H Potassium 3.9 3.9 Chloride 108 H 108 H Carbon Dioxide 34 H 33 H Anion Gap 5.9 9.9 BUN 11 11 Creatinine 0.90 0.80 GFR Calculation 71 82 BUN/Creatinine Ratio 12.00 13.00 Glucose 98 99 Calculated Osmolality 284.8 290.4 Calcium 8.7 8.7 Magnesium 2.3 Preliminary micro results at discharge 06/10/17 14:47 Blood Culture - Preliminary Blood No growth at 1 day 06/10/17 14:47 Blood Culture - Preliminary Blood No growth at 1 day DS: Provider Date of admission: 06/10/17 12:28 Primary care physician: Aiden Russ MD Attending physician on admission: Diogenes Richey MD Consults: 06/10/17 13:33 Consult to Pastoral Services [CONS] Routine Comment: Pastoral Screen: Request Pipe Washer Visit 06/10/17 16:43 Consult to Physician [CONS] Routine Comment: Consulting Provider: Ace Lemus When should Consulting Provider be notified: In am Discharging clinician: Diogenes Richey MD
[2017-06-12] MEDS ORDERED: AMITRIPTYLINE 10 MG TABLET PO SCH (21:00)
[2017-06-15] MEDS ORDERED: Alendronate Sodium [Alendronate Sodium] 35 MG Tablet PO SCH (09:00)
== END 2017-06-12 16:10 | disposition home or self-care (01) | DRG 103 ==
LOC: N.ED 09:08 → N.EDINP 12:28 → N.2E 13:27
PROVIDERS: ADMIT Internal Medicine; ATTEND Internal Medicine

== ENCOUNTER 2019-07-28 10:38 | Observation (INO) ==
[2019-07-28] MEDS ORDERED: methylPREDNISolone SOD SUC 125 MG/2 ML VIAL IV STA (11:27)
[2019-07-28] MEDS ORDERED: ALBUTEROL/IPRATROPIUM 3 ML NEB RESP TX STA (11:28)
[2019-07-28 12:04] LABS: Basophils % 0.3 % (0.0-0.8); Eosinophils % 0.2 % (0.00-10.9); Hemoglobin 13.3 GM/DL (12.0-16.0); Immature Granulocytes % 0.6 %; Immature Granulocytes Absolute 0.09 #; Lymphocytes # 1.9 10*3/uL (1.4-4.0); Lymphocytes % 12.6 % (21.3-54.2); Mean Corpuscular HGB Conc 30.9 GM/DL (32-36); Mean Corpuscular Volume 87.8 FL (87-102); Mean Platelet Volume 10.2 FL (9.6-12.0); Monocytes % 6.7 % (1.7-12.7); Neutrophils % 79.6 % (38.7-73.9); Platelet Count 275 T/CUMM (130-400); Red Cell Distribution Width 13.9 % (9.3-17.3); White Blood Count 15.2 T/CUMM (4-12)
[2019-07-28 12:20] LABS: Alanine Aminotransferase 18 U/L (13-56); Alkaline Phosphatase 76 U/L (45-117); Aspartate Amino Transferase 14 U/L (0-37); Bilirubin,Total < 0.39 MG/DL (0.2-1.0); Blood Urea Nitrogen 20 MG/DL (7-18); Calcium 9.2 MG/DL (8.5-10.1); Estimated Glom Filtration Rate 40 ML/MIN; Glucose 95 MG/DL (74-106); Osmolality,Calculated 288.8 MOS/KG (273-304)
[2019-07-28] MEDS ORDERED: ACETAMINOPHEN 325 MG TABLET PO PRN (12:22)
[2019-07-28] MEDS ORDERED: ONDANSETRON 4 MG/2 ML VIAL IV PRN (12:22)
[2019-07-28] MEDS ORDERED: SODIUM CHLORIDE 0.9% 1,000 ML IV STA (12:37)
[2019-07-28] MEDS ORDERED: POLYETHYLENE GLYCOL POWDER 17 GM PACK PO PRN (14:56)
[2019-07-28] MEDS ORDERED: DICLOFENAC SODIUM 75 MG TABLET PO PRN (14:56)
[2019-07-28] MEDS ORDERED: DENOSUMAB 60 MG/ML SYRINGE SUBCUT SCH (15:00)
[2019-07-28] MEDS: ALBUTEROL/IPRATROPIUM 3 ML NEB RESP TX SCH ×2 (15:22→21:56)
[2019-07-28] MEDS ORDERED: ENOXAPARIN 40 MG/0.4 ML SYRINGE SUBCUT SCH (21:00)
[2019-07-28] MEDS ORDERED: MONTELUKAST 10 MG TABLET PO SCH (21:00)
[2019-07-28] MEDS: THEOPHYLLINE ER 300 MG TABLET PO SCH (21:43)
[2019-07-28] MEDS: guaiFENesin/DM ER 600-30 MG TABLET PO SCH (21:44)
[2019-07-28] MEDS: FERROUS SULFATE 325 MG TABLET PO SCH (21:44)
[2019-07-28] MEDS: ALBUTEROL 0.4 MG/ML 30 ML/BOTTLE PO SCH (21:53)
[2019-07-28] MEDS ORDERED: LOSARTAN 50 MG TABLET PO SCH (22:00)
[2019-07-29] MEDS: ALBUTEROL/IPRATROPIUM 3 ML NEB RESP TX SCH ×3 (00:50→07:00)
[2019-07-29 01:49] LABS: Basophils % 0.2 % (0.0-0.8); Hematocrit 41.1 VOL% (35.7-47.0); Hemoglobin 12.2 GM/DL (12.0-16.0); Immature Granulocytes % 1.2 %; Immature Granulocytes Absolute 0.15 #; Lymphocytes # 0.7 10*3/uL (1.4-4.0); Lymphocytes % 5.9 % (21.3-54.2); Mean Corpuscular HGB Conc 29.7 GM/DL (32-36); Mean Corpuscular Volume 90.5 FL (87-102); Monocytes % 2.7 % (1.7-12.7); Platelet Count 254 T/CUMM (130-400); Red Blood Count 4.54 MC/CUMM (3.8-5.5); Red Cell Distribution Width 14.2 % (9.3-17.3); White Blood Count 12.5 T/CUMM (4-12)
[2019-07-29 01:50] LABS: Calcium 8.9 MG/DL (8.5-10.1); Osmolality,Calculated 294.7 MOS/KG (273-304)
[2019-07-29] MEDS ORDERED: THYROID 60 MG TABLET PO SCH (06:30)
[2019-07-29 07:45] VITALS: BP 118/47
[2019-07-29] MEDS: FERROUS SULFATE 325 MG TABLET PO SCH (08:45)
[2019-07-29] MEDS: THEOPHYLLINE ER 300 MG TABLET PO SCH (08:45)
[2019-07-29] MEDS: guaiFENesin/DM ER 600-30 MG TABLET PO SCH (08:45)
[2019-07-29] MEDS: ALBUTEROL 0.4 MG/ML 30 ML/BOTTLE PO SCH (08:45)
[2019-07-29] MEDS ORDERED: predniSONE 10 MG TABLET PO SCH (09:00)
[2019-07-29] MEDS ORDERED: MULTIVITAMIN (CENTRUM) TABLET PO SCH (09:00)
[2019-07-29] MEDS ORDERED: CALCIUM (CARBONATE)/VITAMIN D 600 MG-400 UNIT TABLET PO SCH (09:00)
[2019-07-29] MEDS ORDERED: CHOLECALCIFEROL 5,000 UNIT TABLET PO SCH (09:00)
[2019-07-29] MEDS ORDERED: OMEGA 3 ACID ETHYL ESTERS 1 GM CAPSULE PO SCH (09:00)
[2019-07-29] MEDS ORDERED: PANTOPRAZOLE 40 MG TABLET PO SCH (09:00)
[2019-07-29] MEDS ORDERED: ASPIRIN EC 81 MG TABLET PO SCH (09:00)
== END 2019-07-29 11:02 | disposition home or self-care (01) ==
LOC: N.ED 10:38 → N.EDINP 10:38 → N.2E 14:11
PROVIDERS: ADMIT Internal Medicine Geriatric Medicine; ATTEND Internal Medicine Geriatric Medicine

== ENCOUNTER 2019-12-29 20:01 | Inpatient (IN) ==
[2019-12-29] MEDS ORDERED: SODIUM CHLORIDE 0.9% 1,000 ML IV STA (20:45)
[2019-12-29 21:23] LABS: Basophils # 0.1 10*3/uL (0.0-0.2); Basophils % 0.3 % (0.0-0.8); Hemoglobin 12.7 GM/DL (12.0-16.0); Immature Granulocytes % 0.5 %; Lymphocytes # 0.8 10*3/uL (1.4-4.0); Lymphocytes % 3.9 % (21.3-54.2); Mean Corpuscular HGB Conc 30.2 GM/DL (32-36); Mean Corpuscular Volume 85.9 FL (87-102); Mean Platelet Volume 9.4 FL (9.6-12.0); Monocytes % 3.6 % (1.7-12.7); Neutrophils % 91.7 % (38.7-73.9); Platelet Count 284 T/CUMM (130-400); Red Blood Count 4.89 MC/CUMM (3.8-5.5); Red Cell Distribution Width 14.3 % (9.3-17.3); White Blood Count 20.6 T/CUMM (4-12)
[2019-12-29 21:42] LABS: Alanine Aminotransferase 10 U/L (13-56); Albumin 2.9 G/DL (3.4-5.0); Alkaline Phosphatase 68 U/L (45-117); Aspartate Amino Transferase 12 U/L (0-37); Bilirubin,Total < 0.39 MG/DL (0.2-1.0); Blood Urea Nitrogen 24 MG/DL (7-18); Calcium 9.4 MG/DL (8.5-10.1); Glucose 113 MG/DL (74-106); Osmolality,Calculated 279.7 MOS/KG (273-304)
[2019-12-29 21:43] LABS: Estimated Glom Filtration Rate 0 ML/MIN
[2019-12-29 21:48] LABS: Lymphocytes 5 % (20-55); Platelet Estimate Normal; Segmented Neutrophils 94 % (50-85); Total Cells Counted 100
[2019-12-29 23:08] LABS: Apearance,Urine CLOUDY (Clear); Bilirubin,Urine Negative (Negative); Blood, Urine Small mg/dL (Negative); Glucose,Urine (UA) Negative (Negative); Hyaline Casts,Urine 44 /LPF (0-3); Ketones,Urine Negative (Negative); Mucus,Urine Occasional /LPF (Occasional); Nitrite,Urine Negative (Negative); Protein,Urine Negative; RBC,Urine 20 /HPF (0-4); Squamous Epithelial Cell,Urine Occasional /HPF (0-10); Urine Color Yellow (Yellow); Urine Specific Gravity 1.017 (1.001-1.035); Urine Urobilinogen < 2.0 EU/DL (0.2-1.0); WBC,Urine 280 /HPF (0-6)
[2019-12-29] MEDS ORDERED: PIPERACILLIN/TAZOBACTAM 3,375 MG in SODIUM CHLORIDE 0.9% 100 ML IV STA (23:37)
[2019-12-30] MEDS ORDERED: PROMETHAZINE 25 MG/1 ML VIAL IM PRN (01:28)
[2019-12-30] MEDS ORDERED: hydrALAZINE 20 MG/1 ML VIAL IV PRN (01:28)
[2019-12-30] MEDS ORDERED: NICOTINE 21 MG/24 HR PATCH TRANSDERM PRN (01:28)
[2019-12-30] MEDS ORDERED: diphenhydrAMINE CAP 25 MG CAPSULE PO PRN (01:28)
[2019-12-30] MEDS ORDERED: MORPHINE 4 MG/1 ML VIAL IV PRN (01:28)
[2019-12-30] MEDS ORDERED: ACETAMINOPHEN 325 MG TABLET PO PRN (01:28)
[2019-12-30] MEDS ORDERED: guaiFENesin/DM ER 600-30 MG TABLET PO PRN (01:28)
[2019-12-30] MEDS: SODIUM CHLORIDE 0.9% 1,000 ML IV SCH ×3 (01:45→23:10)
[2019-12-30] MEDS: MEROPENEM 500 MG in SODIUM CHLORIDE 0.9% 100 ML IV SCH ×4 (06:00→20:36)
[2019-12-30 06:22] LABS: Basophils # 0.1 10*3/uL (0.0-0.2); Basophils % 0.5 % (0.0-0.8); Eosinophils # 0.2 10*3/uL (0.0-0.87); Eosinophils % 1.7 % (0.00-10.9); Hematocrit 36.2 VOL% (35.7-47.0); Hemoglobin 11.1 GM/DL (12.0-16.0); Immature Granulocytes % 0.5 %; Immature Granulocytes Absolute 0.05 #; Lymphocytes % 9.1 % (21.3-54.2); Mean Corpuscular HGB Conc 30.7 GM/DL (32-36); Mean Corpuscular Volume 85.8 FL (87-102); Mean Platelet Volume 9.7 FL (9.6-12.0); Monocytes % 5.8 % (1.7-12.7); Neutrophils % 82.4 % (38.7-73.9); Platelet Count 222 T/CUMM (130-400); Red Blood Count 4.22 MC/CUMM (3.8-5.5); Red Cell Distribution Width 14.6 % (9.3-17.3); White Blood Count 10.6 T/CUMM (4-12)
[2019-12-30 06:52] LABS: Alanine Aminotransferase < 9 U/L (13-56); Albumin 2.4 G/DL (3.4-5.0); Alkaline Phosphatase 59 U/L (45-117); Aspartate Amino Transferase 10 U/L (0-37); Blood Urea Nitrogen 19 MG/DL (7-18); Calcium 8.5 MG/DL (8.5-10.1); Estimated Glom Filtration Rate 63 ML/MIN; Glucose 95 MG/DL (74-106); Osmolality,Calculated 284.1 MOS/KG (273-304)
[2019-12-30] MEDS ORDERED: ENOXAPARIN 30 MG/0.3 ML SYRINGE SUBCUT SCH (08:00)
[2019-12-30] MEDS: DOCUSATE SODIUM 100 MG CAPSULE PO SCH ×2 (08:50→22:08)
[2019-12-30] MEDS ORDERED: PANTOPRAZOLE 40 MG TABLET PO SCH (09:00)
[2019-12-30] MEDS ORDERED: POLYETHYLENE GLYCOL POWDER 17 GM PACK PO PRN (09:35)
[2019-12-30] MEDS: THEOPHYLLINE ER 300 MG TABLET PO SCH ×2 (10:27→22:08)
[2019-12-30] MEDS: predniSONE 5 MG TABLET PO SCH (10:27)
[2019-12-30] MEDS: ALBUTEROL 2.5 MG/3 ML NEB RESP TX PRN (14:25)
[2019-12-30] MEDS: ALBUTEROL 0.4 MG/ML 30 ML/BOTTLE PO SCH ×2 (14:34→21:00)
[2019-12-30] MEDS: MONTELUKAST 10 MG TABLET PO SCH (20:28)
[2019-12-30] MEDS: LOSARTAN 50 MG TABLET PO SCH (20:29)
[2019-12-30] MEDS: FERROUS SULFATE 325 MG TABLET PO SCH (22:05)
[2019-12-31] MEDS: MEROPENEM 500 MG in SODIUM CHLORIDE 0.9% 100 ML IV SCH ×4 (03:30→20:33)
[2019-12-31] MEDS: THYROID 60 MG TABLET PO SCH (05:48)
[2019-12-31] MEDS: PANTOPRAZOLE 40 MG TABLET PO SCH (07:40)
[2019-12-31] MEDS: ENOXAPARIN 40 MG/0.4 ML SYRINGE SUBCUT SCH (09:11)
[2019-12-31] MEDS: predniSONE 5 MG TABLET PO SCH (09:12)
[2019-12-31] MEDS: THEOPHYLLINE ER 300 MG TABLET PO SCH ×2 (09:12→20:33)
[2019-12-31] MEDS: FERROUS SULFATE 325 MG TABLET PO SCH ×2 (09:12→20:34)
[2019-12-31] MEDS: LORATADINE 10 MG TABLET PO SCH (09:12)
[2019-12-31] MEDS: ASPIRIN EC 81 MG TABLET PO SCH (09:12)
[2019-12-31] MEDS: DOCUSATE SODIUM 100 MG CAPSULE PO SCH ×2 (09:12→20:48)
[2019-12-31] MEDS: ALBUTEROL 0.4 MG/ML 30 ML/BOTTLE PO SCH ×2 (09:46→15:10)
[2019-12-31] MEDS: SODIUM CHLORIDE 0.9% 1,000 ML IV SCH ×3 (10:10→20:41)
[2019-12-31] MEDS: ALBUTEROL 2.5 MG/3 ML NEB RESP TX PRN (14:22)
[2019-12-31] MEDS: LOSARTAN 50 MG TABLET PO SCH (20:34)
[2019-12-31] MEDS: MONTELUKAST 10 MG TABLET PO SCH (20:44)
[2020-01-01] MEDS: MEROPENEM 500 MG in SODIUM CHLORIDE 0.9% 100 ML IV SCH ×4 (03:28→21:32)
[2020-01-01] MEDS: SODIUM CHLORIDE 0.9% 1,000 ML IV SCH ×2 (05:40→16:26)
[2020-01-01] MEDS: THYROID 60 MG TABLET PO SCH (05:41)
[2020-01-01] MEDS: ALBUTEROL 0.4 MG/ML 30 ML/BOTTLE PO SCH ×4 (07:01→21:31)
[2020-01-01] MEDS: FERROUS SULFATE 325 MG TABLET PO SCH ×2 (08:46→21:31)
[2020-01-01] MEDS: ASPIRIN EC 81 MG TABLET PO SCH (08:46)
[2020-01-01] MEDS: THEOPHYLLINE ER 300 MG TABLET PO SCH ×2 (08:46→21:31)
[2020-01-01] MEDS: LORATADINE 10 MG TABLET PO SCH (08:46)
[2020-01-01] MEDS: predniSONE 5 MG TABLET PO SCH (08:47)
[2020-01-01] MEDS: DOCUSATE SODIUM 100 MG CAPSULE PO SCH ×2 (08:47→21:31)
[2020-01-01] MEDS: PANTOPRAZOLE 40 MG TABLET PO SCH (08:47)
[2020-01-01] MEDS: ENOXAPARIN 40 MG/0.4 ML SYRINGE SUBCUT SCH (08:47)
[2020-01-01] MEDS: ALBUTEROL 2.5 MG/3 ML NEB RESP TX PRN (21:00)
[2020-01-01] MEDS: MONTELUKAST 10 MG TABLET PO SCH (21:31)
[2020-01-01] MEDS: LOSARTAN 50 MG TABLET PO SCH (21:31)
[2020-01-02] MEDS: SODIUM CHLORIDE 0.9% 1,000 ML IV SCH ×2 (02:04→11:03)
[2020-01-02] MEDS: MEROPENEM 500 MG in SODIUM CHLORIDE 0.9% 100 ML IV SCH ×4 (02:05→21:11)
[2020-01-02] MEDS: THYROID 60 MG TABLET PO SCH (05:42)
[2020-01-02 06:00] LABS: Calcium 8.8 MG/DL (8.5-10.1); Osmolality,Calculated 286.7 MOS/KG (273-304)
[2020-01-02 06:10] LABS: Basophils # 0.1 10*3/uL (0.0-0.2); Eosinophils # 0.4 10*3/uL (0.0-0.87); Eosinophils % 5.4 % (0.00-10.9); Hematocrit 35.4 VOL% (35.7-47.0); Hemoglobin 10.6 GM/DL (12.0-16.0); Immature Granulocytes % 0.4 %; Immature Granulocytes Absolute 0.03 #; Lymphocytes # 1.7 10*3/uL (1.4-4.0); Lymphocytes % 25.6 % (21.3-54.2); Mean Corpuscular HGB Conc 29.9 GM/DL (32-36); Mean Corpuscular Volume 88.1 FL (87-102); Mean Platelet Volume 10.4 FL (9.6-12.0); Monocytes % 7.5 % (1.7-12.7); Neutrophils % 60.1 % (38.7-73.9); Platelet Count 217 T/CUMM (130-400); Red Blood Count 4.02 MC/CUMM (3.8-5.5); Red Cell Distribution Width 14.4 % (9.3-17.3); White Blood Count 6.7 T/CUMM (4-12)
[2020-01-02 06:20] LABS: Hypochromasia Slight; Ovalocytes Slight; Platelet Estimate Adequate
[2020-01-02] MEDS: PANTOPRAZOLE 40 MG TABLET PO SCH (07:29)
[2020-01-02] MEDS: ENOXAPARIN 40 MG/0.4 ML SYRINGE SUBCUT SCH (08:32)
[2020-01-02] MEDS: THEOPHYLLINE ER 300 MG TABLET PO SCH ×2 (08:37→21:10)
[2020-01-02] MEDS: FERROUS SULFATE 325 MG TABLET PO SCH ×2 (08:38→21:11)
[2020-01-02] MEDS: ASPIRIN EC 81 MG TABLET PO SCH (08:38)
[2020-01-02] MEDS: LORATADINE 10 MG TABLET PO SCH (08:39)
[2020-01-02] MEDS: predniSONE 5 MG TABLET PO SCH (08:40)
[2020-01-02] MEDS: DOCUSATE SODIUM 100 MG CAPSULE PO SCH ×2 (09:01→21:11)
[2020-01-02] MEDS: ALBUTEROL 0.4 MG/ML 30 ML/BOTTLE PO SCH ×3 (09:24→23:57)
[2020-01-02] MEDS: ALBUTEROL 2.5 MG/3 ML NEB RESP TX PRN (18:40)
[2020-01-02] MEDS: LOSARTAN 50 MG TABLET PO SCH (21:11)
[2020-01-02] MEDS: MONTELUKAST 10 MG TABLET PO SCH (21:12)
[2020-01-03] MEDS: MEROPENEM 500 MG in SODIUM CHLORIDE 0.9% 100 ML IV SCH ×4 (02:29→20:50)
[2020-01-03] MEDS: THYROID 60 MG TABLET PO SCH (05:51)
[2020-01-03] MEDS: PANTOPRAZOLE 40 MG TABLET PO SCH (06:06)
[2020-01-03] MEDS: THEOPHYLLINE ER 300 MG TABLET PO SCH ×2 (09:45→20:49)
[2020-01-03] MEDS: ENOXAPARIN 40 MG/0.4 ML SYRINGE SUBCUT SCH (09:45)
[2020-01-03] MEDS: ASPIRIN EC 81 MG TABLET PO SCH (09:45)
[2020-01-03] MEDS: predniSONE 5 MG TABLET PO SCH (09:46)
[2020-01-03] MEDS: DOCUSATE SODIUM 100 MG CAPSULE PO SCH ×2 (09:46→20:50)
[2020-01-03] MEDS: LORATADINE 10 MG TABLET PO SCH (09:46)
[2020-01-03] MEDS: FERROUS SULFATE 325 MG TABLET PO SCH ×2 (09:46→20:50)
[2020-01-03] MEDS: ALBUTEROL 0.4 MG/ML 30 ML/BOTTLE PO SCH ×3 (09:51→20:48)
[2020-01-03] MEDS ORDERED: LIDOCAINE 2% TOP JELLY 20 ML VIAL INTRAURETH ONE (11:56)
[2020-01-03] MEDS: SODIUM CHLORIDE 0.9% 1,000 ML IV SCH ×3 (16:05→16:06)
[2020-01-03] MEDS: ALBUTEROL 2.5 MG/3 ML NEB RESP TX PRN (20:11)
[2020-01-03] MEDS: MONTELUKAST 10 MG TABLET PO SCH (20:49)
[2020-01-04] MEDS: LOSARTAN 50 MG TABLET PO SCH (02:39)
[2020-01-04] MEDS: MEROPENEM 500 MG in SODIUM CHLORIDE 0.9% 100 ML IV SCH ×3 (03:44→15:15)
[2020-01-04] MEDS: PANTOPRAZOLE 40 MG TABLET PO SCH (06:04)
[2020-01-04] MEDS: THYROID 60 MG TABLET PO SCH (06:04)
[2020-01-04] MEDS: SODIUM CHLORIDE 0.9% 1,000 ML IV SCH (06:37)
[2020-01-04 06:55] LABS: Basophils # 0.1 10*3/uL (0.0-0.2); Basophils % 0.9 % (0.0-0.8); Eosinophils # 0.5 10*3/uL (0.0-0.87); Eosinophils % 8.1 % (0.00-10.9); Hematocrit 34.7 VOL% (35.7-47.0); Hemoglobin 10.5 GM/DL (12.0-16.0); Immature Granulocytes % 0.4 %; Immature Granulocytes Absolute 0.03 #; Lymphocytes # 1.7 10*3/uL (1.4-4.0); Lymphocytes % 25.4 % (21.3-54.2); Mean Corpuscular HGB Conc 30.3 GM/DL (32-36); Mean Corpuscular Volume 87.2 FL (87-102); Monocytes % 7.3 % (1.7-12.7); Neutrophils % 57.9 % (38.7-73.9); Platelet Count 211 T/CUMM (130-400); Red Blood Count 3.98 MC/CUMM (3.8-5.5); Red Cell Distribution Width 14.2 % (9.3-17.3); White Blood Count 6.7 T/CUMM (4-12)
[2020-01-04 07:27] LABS: Calcium 8.6 MG/DL (8.5-10.1); Osmolality,Calculated 285.7 MOS/KG (273-304)
[2020-01-04] MEDS ORDERED: ENOXAPARIN 40 MG/0.4 ML SYRINGE SUBCUT SCH (10:00)
[2020-01-04] MEDS: FERROUS SULFATE 325 MG TABLET PO SCH (11:04)
[2020-01-04] MEDS: THEOPHYLLINE ER 300 MG TABLET PO SCH (11:04)
[2020-01-04] MEDS: LORATADINE 10 MG TABLET PO SCH (11:04)
[2020-01-04] MEDS: DOCUSATE SODIUM 100 MG CAPSULE PO SCH (11:05)
[2020-01-04] MEDS: ASPIRIN EC 81 MG TABLET PO SCH (11:05)
[2020-01-04] MEDS: predniSONE 5 MG TABLET PO SCH (11:05)
[2020-01-04] MEDS: ALBUTEROL 0.4 MG/ML 30 ML/BOTTLE PO SCH (11:05)
[2020-01-04] MEDS ORDERED: BISACODYL 5 MG TABLET PO ONE (15:22)
[2020-01-04 16:08] VITALS: BP 116/62
== END 2020-01-04 16:11 | disposition home or self-care (01) | DRG 872 ==
LOC: N.ED 20:01 → N.EDINP 12-30 01:28 → SUATTDRO 12-30 01:28 → N.5E 12-30 02:28
PROVIDERS: ADMIT Internal Medicine; ATTEND Family Medicine

== ENCOUNTER 2020-01-17 05:45 | Inpatient (IN) ==
[2020-01-17] MEDS ORDERED: ALVIMOPAN 12 MG CAPSULE ONE (05:47)
[2020-01-17] MEDS ORDERED: ERTAPENEM 1,000 MG VIAL ONE (05:47)
[2020-01-17] MEDS ORDERED: LACTATED RINGERS 1,000 ML IV SCH (06:00)
[2020-01-17] MEDS ORDERED: ERTAPENEM 1,000 MG in SODIUM CHLORIDE 0.9% 100 ML IV ONE (06:30)
[2020-01-17] MEDS ORDERED: ALVIMOPAN 12 MG CAPSULE PO ONE (06:30)
[2020-01-17] MEDS ORDERED: METHYLENE BLUE 10 ML VIAL IV ONE (13:41)
[2020-01-17] MEDS ORDERED: SUGAMMADEX 200 MG/2 ML VIAL IV ONE (14:14)
[2020-01-17] MEDS ORDERED: BUPIVACAINE MPF 0.25% 30 ML VIAL ONE (14:23)
[2020-01-17] MEDS ORDERED: DEXAMETHASONE 4 MG/1 ML VIAL ONE (14:23)
[2020-01-17] MEDS ORDERED: ALBUMIN 5% 12.5 GM/250 ML VIAL IV ONE (14:58)
[2020-01-17] MEDS ORDERED: fentaNYL 100 MCG/2 ML VIAL ONE (14:58)
[2020-01-17] MEDS ORDERED: propofoL 200 MG/20 ML VIAL IV ONE (14:58)
[2020-01-17] MEDS ORDERED: LIDOCAINE 2% 5 ML VIAL ONE (14:58)
[2020-01-17] MEDS ORDERED: SEVOFLURANE 1 UNIT/15 MINUTE INH ONE (14:58)
[2020-01-17 14:59] LABS: Apearance,Urine Slightly Hazy (Clear); Bilirubin,Urine Negative (Negative); Blood, Urine Negative (Negative); Calcium Oxalate Crystals,Urine Many /HPF (Few); Glucose,Urine (UA) Negative (Negative); Ketones,Urine 5 mg/dL (Negative); Mucus,Urine Occasional /LPF (Occasional); Nitrite,Urine Negative (Negative); Protein,Urine Negative; RBC,Urine 12 /HPF (0-4); Squamous Epithelial Cell,Urine Occasional /HPF (0-10); Urine Color Yellow (Yellow); Urine Specific Gravity 1.016 (1.001-1.035); Urine Urobilinogen < 2.0 EU/DL (0.2-1.0); WBC,Urine 2 /HPF (0-6)
[2020-01-17] MEDS ORDERED: SODIUM CHLORIDE 0.9% 100 ML IV ONE (14:59)
[2020-01-17] MEDS ORDERED: ETOMIDATE 40 MG/20 ML VIAL IV ONE (14:59)
[2020-01-17] MEDS ORDERED: ROCURONIUM 100 MG/10 ML VIAL IV ONE (14:59)
[2020-01-17] MEDS ORDERED: LACTATED RINGERS 3,000 ML IV ONE (14:59)
[2020-01-17] MEDS ORDERED: HYDROCORTISONE 100 MG VIAL ONE (14:59)
[2020-01-17] MEDS ORDERED: ePHEDrine 50 MG/ML AMP ONE (14:59)
[2020-01-17] MEDS ORDERED: SODIUM CHLORIDE 0.9% 1,000 ML IV ONE (14:59)
[2020-01-17] MEDS ORDERED: ALBUTEROL INHALER 8 GM INH ONE (14:59)
[2020-01-17] MEDS ORDERED: PHENYLEPHRINE 10 MG/1 ML VIAL IV ONE (14:59)
[2020-01-17 15:04] LABS: Hematocrit 39.6 VOL% (35.7-47.0); Hemoglobin 11.8 GM/DL (12.0-16.0)
[2020-01-17] MEDS: DEXTROSE 5% LACTATED RINGERS 1,000 ML IV SCH (16:35)
[2020-01-17] MEDS: MORPHINE 4 MG/1 ML VIAL IV PRN ×2 (16:39→21:22)
[2020-01-17] MEDS ORDERED: ALBUTEROL/IPRATROPIUM 3 ML NEB RESP TX ONE (19:02)
[2020-01-17] MEDS: ALBUTEROL/IPRATROPIUM 3 ML NEB RESP TX SCH (19:05)
[2020-01-17] MEDS: THEOPHYLLINE ER 300 MG TABLET PO SCH (21:22)
[2020-01-17] MEDS: cefOXitin 2,000 MG in SYRINGE 1 EACH IV SCH (21:23)
[2020-01-17 23:20] LABS: Hematocrit 38.6 VOL% (35.7-47.0); Hemoglobin 11.7 GM/DL (12.0-16.0)
[2020-01-18] MEDS: DEXTROSE 5% LACTATED RINGERS 1,000 ML IV SCH ×5 (02:07→14:03)
[2020-01-18] MEDS: ONDANSETRON 4 MG/2 ML VIAL IV PRN ×2 (03:04→09:01)
[2020-01-18] MEDS: MORPHINE 4 MG/1 ML VIAL IV PRN ×2 (03:04→09:04)
[2020-01-18] MEDS: cefOXitin 2,000 MG in SYRINGE 1 EACH IV SCH ×2 (03:04→09:01)
[2020-01-18 04:57] LABS: Basophils # 0.1 10*3/uL (0.0-0.2); Basophils % 0.5 % (0.0-0.8); Eosinophils % 0.2 % (0.00-10.9); Hematocrit 39.3 VOL% (35.7-47.0); Hemoglobin 11.9 GM/DL (12.0-16.0); Immature Granulocytes % 0.2 %; Immature Granulocytes Absolute 0.03 #; Lymphocytes # 1.2 10*3/uL (1.4-4.0); Mean Corpuscular HGB Conc 30.3 GM/DL (32-36); Mean Corpuscular Volume 86.4 FL (87-102); Mean Platelet Volume 10.7 FL (9.6-12.0); Monocytes % 6.3 % (1.7-12.7); Neutrophils % 83.8 % (38.7-73.9); Platelet Count 277 T/CUMM (130-400); Red Blood Count 4.55 MC/CUMM (3.8-5.5); Red Cell Distribution Width 14.3 % (9.3-17.3); White Blood Count 12.8 T/CUMM (4-12)
[2020-01-18 05:20] LABS: Albumin 2.8 G/DL (3.4-5.0); Bilirubin,Total 0.9 MG/DL (0.2-1.0); Calcium 8.4 MG/DL (8.5-10.1); Osmolality,Calculated 283.3 MOS/KG (273-304)
[2020-01-18 07:18] LABS: Hematocrit 39.4 VOL% (35.7-47.0); Hemoglobin 12.1 GM/DL (12.0-16.0)
[2020-01-18 07:42] LABS: Troponin I < 0.015 NG/ML (0.00-0.045)
[2020-01-18] MEDS: ALBUTEROL/IPRATROPIUM 3 ML NEB RESP TX SCH ×2 (07:45→18:57)
[2020-01-18] MEDS: ENOXAPARIN 40 MG/0.4 ML SYRINGE SUBCUT SCH (09:01)
[2020-01-18] MEDS: predniSONE 5 MG TABLET PO SCH (09:02)
[2020-01-18] MEDS: PANTOPRAZOLE 40 MG TABLET PO SCH (09:02)
[2020-01-18] MEDS: THEOPHYLLINE ER 300 MG TABLET PO SCH ×2 (09:02→20:37)
[2020-01-18] MEDS: ALBUTEROL 0.4 MG/ML 30 ML/BOTTLE PO SCH (09:03)
[2020-01-18] MEDS ORDERED: POTASSIUM CHLORIDE 20 MEQ TABLET PO ONE (12:30)
[2020-01-18] MEDS ORDERED: METOPROLOL TARTRATE 5 MG/5 ML VIAL IV PRN (12:54)
[2020-01-18] MEDS: ASCORBIC ACID 500 MG TABLET PO SCH ×2 (13:17→20:37)
[2020-01-19 05:59] LABS: Basophils % 0.2 % (0.0-0.8); Eosinophils # 0.1 10*3/uL (0.0-0.87); Eosinophils % 0.6 % (0.00-10.9); Hematocrit 33.9 VOL% (35.7-47.0); Hemoglobin 10.3 GM/DL (12.0-16.0); Immature Granulocytes % 0.5 %; Immature Granulocytes Absolute 0.08 #; Lymphocytes # 1.1 10*3/uL (1.4-4.0); Lymphocytes % 7.6 % (21.3-54.2); Mean Corpuscular HGB Conc 30.4 GM/DL (32-36); Mean Corpuscular Volume 86.5 FL (87-102); Mean Platelet Volume 10.2 FL (9.6-12.0); Monocytes % 7.5 % (1.7-12.7); Neutrophils % 83.6 % (38.7-73.9); Platelet Count 229 T/CUMM (130-400); Red Blood Count 3.92 MC/CUMM (3.8-5.5); Red Cell Distribution Width 14.3 % (9.3-17.3); White Blood Count 14.7 T/CUMM (4-12)
[2020-01-19 06:19] LABS: Calcium 8.4 MG/DL (8.5-10.1); Osmolality,Calculated 284.1 MOS/KG (273-304)
[2020-01-19] MEDS: ALBUTEROL/IPRATROPIUM 3 ML NEB RESP TX SCH ×2 (07:06→19:37)
[2020-01-19] MEDS ORDERED: LIDOCAINE 1% 20 ML VIAL ONE (07:52)
[2020-01-19] MEDS: MORPHINE 4 MG/1 ML VIAL IV PRN (10:24)
[2020-01-19] MEDS ORDERED: cefOXitin 2,000 MG in SYRINGE 1 EACH IV ONE (10:33)
[2020-01-19] MEDS: THEOPHYLLINE ER 300 MG TABLET PO SCH ×2 (10:39→20:43)
[2020-01-19] MEDS: ENOXAPARIN 40 MG/0.4 ML SYRINGE SUBCUT SCH (10:39)
[2020-01-19] MEDS: ASCORBIC ACID 500 MG TABLET PO SCH ×2 (10:39→20:44)
[2020-01-19] MEDS: DEXTROSE 5% LACTATED RINGERS 1,000 ML IV SCH ×2 (13:06)
[2020-01-19] MEDS ORDERED: SUGAMMADEX 200 MG/2 ML VIAL IV ONE (13:49)
[2020-01-19] MEDS ORDERED: SEVOFLURANE 1 UNIT/15 MINUTE INH ONE (14:00)
[2020-01-19] MEDS ORDERED: fentaNYL 100 MCG/2 ML VIAL ONE (14:00)
[2020-01-19] MEDS ORDERED: ONDANSETRON 4 MG/2 ML VIAL ONE (14:00)
[2020-01-19] MEDS ORDERED: ETOMIDATE 40 MG/20 ML VIAL IV ONE (14:00)
[2020-01-19] MEDS ORDERED: LIDOCAINE 2% 5 ML VIAL ONE (14:00)
[2020-01-19] MEDS ORDERED: PHENYLEPHRINE 1 MG/10 ML SYRINGE IV ONE (14:00)
[2020-01-19] MEDS ORDERED: LACTATED RINGERS 1,000 ML IV ONE (14:01)
[2020-01-19] MEDS ORDERED: SUCCINYLCHOLINE 200 MG/10 ML VIAL ONE (14:01)
[2020-01-19] MEDS ORDERED: ROCURONIUM 100 MG/10 ML VIAL IV ONE (14:01)
[2020-01-19] MEDS: cefOXitin 1,000 MG in SYRINGE 1 EACH IV SCH ×2 (15:30→20:43)
[2020-01-19] MEDS: predniSONE 5 MG TABLET PO SCH (19:13)
[2020-01-19] MEDS: ALBUTEROL 0.4 MG/ML 30 ML/BOTTLE PO SCH (19:16)
[2020-01-19] MEDS: PANTOPRAZOLE 40 MG TABLET PO SCH (19:16)
[2020-01-19] MEDS: POTASSIUM CHLORIDE 8 MEQ CAPSULE PO SCH (20:43)
[2020-01-20] MEDS: DEXTROSE 5% LACTATED RINGERS 1,000 ML IV SCH ×4 (01:11→18:01)
[2020-01-20] MEDS: cefOXitin 1,000 MG in SYRINGE 1 EACH IV SCH ×3 (03:37→20:48)
[2020-01-20 05:01] LABS: Basophils # 0.1 10*3/uL (0.0-0.2); Basophils % 0.4 % (0.0-0.8); Eosinophils # 0.7 10*3/uL (0.0-0.87); Hematocrit 35.7 VOL% (35.7-47.0); Hemoglobin 10.6 GM/DL (12.0-16.0); Immature Granulocytes % 0.4 %; Immature Granulocytes Absolute 0.06 #; Lymphocytes # 1.2 10*3/uL (1.4-4.0); Lymphocytes % 8.7 % (21.3-54.2); Mean Corpuscular HGB Conc 29.7 GM/DL (32-36); Mean Corpuscular Volume 88.1 FL (87-102); Monocytes % 6.5 % (1.7-12.7); Platelet Count 203 T/CUMM (130-400); Red Blood Count 4.05 MC/CUMM (3.8-5.5); Red Cell Distribution Width 14.2 % (9.3-17.3); White Blood Count 13.4 T/CUMM (4-12)
[2020-01-20 05:36] LABS: Albumin 1.9 G/DL (3.4-5.0); Bilirubin,Total 0.6 MG/DL (0.2-1.0); Calcium 8.6 MG/DL (8.5-10.1); Osmolality,Calculated 285.8 MOS/KG (273-304); Total Protein 5.3 G/DL (6.4-8.3)
[2020-01-20] MEDS: POTASSIUM CHLORIDE RIDER 10 MEQ in PREMIX 1 EACH IV PRN ×2 (07:07→09:14)
[2020-01-20] MEDS: ALBUTEROL/IPRATROPIUM 3 ML NEB RESP TX SCH ×2 (07:36→20:19)
[2020-01-20] MEDS: POTASSIUM CHLORIDE 8 MEQ CAPSULE PO SCH ×2 (09:15→20:49)
[2020-01-20] MEDS: THEOPHYLLINE ER 300 MG TABLET PO SCH ×2 (09:15→20:49)
[2020-01-20] MEDS: PANTOPRAZOLE 40 MG TABLET PO SCH (09:16)
[2020-01-20] MEDS: predniSONE 5 MG TABLET PO SCH (09:16)
[2020-01-20] MEDS: ALBUTEROL 0.4 MG/ML 30 ML/BOTTLE PO SCH (09:16)
[2020-01-20] MEDS: ASCORBIC ACID 500 MG TABLET PO SCH ×2 (09:16→20:49)
[2020-01-20] MEDS: ONDANSETRON 4 MG/2 ML VIAL IV PRN (23:55)
[2020-01-21] MEDS: DEXTROSE 5% LACTATED RINGERS 1,000 ML IV SCH ×2 (02:10→11:43)
[2020-01-21] MEDS: cefOXitin 1,000 MG in SYRINGE 1 EACH IV SCH (04:07)
[2020-01-21 06:23] LABS: Basophils % 0.3 % (0.0-0.8); Eosinophils # 0.8 10*3/uL (0.0-0.87); Eosinophils % 8.6 % (0.00-10.9); Hematocrit 33.1 VOL% (35.7-47.0); Hemoglobin 9.7 GM/DL (12.0-16.0); Immature Granulocytes % 0.3 %; Immature Granulocytes Absolute 0.03 #; Lymphocytes # 1.1 10*3/uL (1.4-4.0); Lymphocytes % 12.4 % (21.3-54.2); Mean Corpuscular HGB Conc 29.3 GM/DL (32-36); Mean Corpuscular Volume 88.7 FL (87-102); Mean Platelet Volume 9.7 FL (9.6-12.0); Monocytes % 8.5 % (1.7-12.7); Neutrophils % 69.9 % (38.7-73.9); Platelet Count 208 T/CUMM (130-400); Red Blood Count 3.73 MC/CUMM (3.8-5.5); Red Cell Distribution Width 13.9 % (9.3-17.3)
[2020-01-21 06:36] LABS: Calcium 8.6 MG/DL (8.5-10.1); Osmolality,Calculated 275.5 MOS/KG (273-304)
[2020-01-21] MEDS: ALBUTEROL/IPRATROPIUM 3 ML NEB RESP TX SCH ×2 (07:27→19:50)
[2020-01-21] MEDS: THEOPHYLLINE ER 300 MG TABLET PO SCH ×2 (09:09→20:28)
[2020-01-21] MEDS: POTASSIUM CHLORIDE 8 MEQ CAPSULE PO SCH ×2 (09:09→20:28)
[2020-01-21] MEDS: predniSONE 5 MG TABLET PO SCH (09:09)
[2020-01-21] MEDS: ASCORBIC ACID 500 MG TABLET PO SCH ×2 (09:09→20:29)
[2020-01-21] MEDS: ALBUTEROL 0.4 MG/ML 30 ML/BOTTLE PO SCH (09:10)
[2020-01-21] MEDS: PANTOPRAZOLE 40 MG TABLET PO SCH (09:10)
[2020-01-21] MEDS ORDERED: MAGNESIUM SULF RIDER 4 GM in PREMIX 1 EACH IV ONE (14:40)
[2020-01-22] MEDS: DEXTROSE 5% LACTATED RINGERS 1,000 ML IV SCH (06:32)
[2020-01-22] MEDS: ALBUTEROL/IPRATROPIUM 3 ML NEB RESP TX SCH (07:20)
[2020-01-22] MEDS: ENOXAPARIN 40 MG/0.4 ML SYRINGE SUBCUT SCH (08:58)
[2020-01-22] MEDS: THEOPHYLLINE ER 300 MG TABLET PO SCH (09:00)
[2020-01-22] MEDS: POTASSIUM CHLORIDE 8 MEQ CAPSULE PO SCH (09:00)
[2020-01-22] MEDS: PANTOPRAZOLE 40 MG TABLET PO SCH (09:00)
[2020-01-22] MEDS: predniSONE 5 MG TABLET PO SCH (09:00)
[2020-01-22] MEDS: ASCORBIC ACID 500 MG TABLET PO SCH (09:01)
[2020-01-22] MEDS: ALBUTEROL 0.4 MG/ML 30 ML/BOTTLE PO SCH (10:51)
[2020-01-22] MEDS: ONDANSETRON 4 MG/2 ML VIAL IV PRN (11:08)
[2020-01-22 12:09] VITALS: BP 148/59
== END 2020-01-22 12:15 | disposition home health service (06) | DRG 330 ==
LOC: N.OR 05:45 → N.SDSINP 05:45 → N.CC 14:55 → N.3E 01-21 14:39
PROVIDERS: ADMIT Surgery; ATTEND Surgery

== ENCOUNTER 2021-07-20 10:39 | Inpatient (IN) ==
[2021-07-20 11:52] LABS: Basophils # 0.1 10*3/uL (0.0-0.2); Basophils % 0.7 % (0.0-0.8); Eosinophils # 0.3 10*3/uL (0.0-0.87); Eosinophils % 3.6 % (0.00-10.9); Hematocrit 42.3 VOL% (35.7-47.0); Hemoglobin 12.5 GM/DL (12.0-16.0); Immature Granulocytes % 0.4 %; Immature Granulocytes Absolute 0.04 #; Lymphocytes # 0.8 10*3/uL (1.4-4.0); Lymphocytes % 8.3 % (21.3-54.2); Mean Corpuscular HGB Conc 29.6 GM/DL (32-36); Mean Corpuscular Volume 88.9 FL (87-102); Mean Platelet Volume 9.9 FL (9.6-12.0); Monocytes % 4.7 % (1.7-12.7); Neutrophils % 82.3 % (38.7-73.9); Platelet Count 213 T/CUMM (130-400); Red Blood Count 4.76 MC/CUMM (3.8-5.5); Red Cell Distribution Width 13.8 % (9.3-17.3); White Blood Count 9.2 T/CUMM (4-12)
[2021-07-20 12:15] LABS: Alanine Aminotransferase < 6 U/L (13-56); Albumin 3.2 G/DL (3.4-5.0); Alkaline Phosphatase 73 U/L (45-117); Aspartate Amino Transferase 9 U/L (0-37); Blood Urea Nitrogen 16 MG/DL (7-18); Carbon Dioxide 33 MMOL/L (21-32); Estimated Glom Filtration Rate 52 ML/MIN; Glucose 93 MG/DL (74-106); Osmolality,Calculated 279.4 MOS/KG (273-304); Potassium 4.4 MMOL/L (3.5-5.1); Sodium 140 MMOL/L (136-145); Total Protein 6.8 G/DL (6.4-8.2)
[2021-07-20] MEDS ORDERED: GLUCAGON 1 MG VIAL IM PRN (14:37)
[2021-07-20] MEDS ORDERED: hydrALAZINE 20 MG/1 ML VIAL IV PRN (14:37)
[2021-07-20] MEDS ORDERED: DEXTROSE 50% 25 GM/50 ML VIAL IV PRN (14:37)
[2021-07-20] MEDS ORDERED: LACTULOSE 20 GM/30 ML UDCUP PO PRN (14:37)
[2021-07-20] MEDS ORDERED: ONDANSETRON 4 MG/2 ML VIAL IV PRN (14:37)
[2021-07-20] MEDS ORDERED: ALBUTEROL 2.5 MG/3 ML NEB RESP TX PRN (14:37)
[2021-07-20] MEDS ORDERED: ALUMINUM/MAGNES/SIMETH MAX STR 30 ML UDCUP PO PRN (14:37)
[2021-07-20] MEDS ORDERED: ACETAMINOPHEN 325 MG TABLET PO PRN (14:37)
[2021-07-20] MEDS ORDERED: PIPERACILLIN/TAZOBACTAM 3,375 MG in SODIUM CHLORIDE 0.9% 100 ML IV SCH (15:00)
[2021-07-20] MEDS ORDERED: SODIUM CHLORIDE 0.9% 1,000 ML IV SCH (15:00)
[2021-07-20] MEDS ORDERED: VANCOMYCIN INJ 1,250 MG in SODIUM CHLORIDE 0.9% 250 ML IV SCH (15:00)
[2021-07-20] MEDS: FUROSEMIDE 40 MG/4 ML VIAL IV SCH (17:23)
[2021-07-20] MEDS: CLINDAMYCIN INJ 300 MG/50 ML PREMIX IV SCH ×2 (17:23→23:28)
[2021-07-20] MEDS ORDERED: INFLUENZA VIRUS VACCINE 0.5 ML SYRINGE IM ONE (18:02)
[2021-07-20] MEDS: ALBUTEROL/IPRATROPIUM 3 ML NEB RESP TX SCH (19:48)
[2021-07-20] MEDS: DOCUSATE SODIUM 100 MG CAPSULE PO SCH (23:30)
[2021-07-20] MEDS: APIXABAN 5 MG TABLET PO SCH (23:31)
[2021-07-21] MEDS: ALBUTEROL/IPRATROPIUM 3 ML NEB RESP TX SCH ×4 (01:00→19:51)
[2021-07-21] MEDS: CLINDAMYCIN INJ 300 MG/50 ML PREMIX IV SCH ×4 (04:08→21:06)
[2021-07-21 06:35] LABS: Basophils # 0.1 10*3/uL (0.0-0.2); Basophils % 0.8 % (0.0-0.8); Eosinophils # 0.4 10*3/uL (0.0-0.87); Eosinophils % 4.9 % (0.00-10.9); Hematocrit 38.6 VOL% (35.7-47.0); Hemoglobin 11.6 GM/DL (12.0-16.0); Immature Granulocytes % 0.4 %; Immature Granulocytes Absolute 0.03 #; Lymphocytes # 1.9 10*3/uL (1.4-4.0); Lymphocytes % 26.2 % (21.3-54.2); Mean Corpuscular HGB Conc 30.1 GM/DL (32-36); Mean Corpuscular Volume 88.1 FL (87-102); Mean Platelet Volume 10.4 FL (9.6-12.0); Monocytes % 10.1 % (1.7-12.7); Neutrophils % 57.6 % (38.7-73.9); Platelet Count 203 T/CUMM (130-400); Red Blood Count 4.38 MC/CUMM (3.8-5.5); Red Cell Distribution Width 13.6 % (9.3-17.3); White Blood Count 7.1 T/CUMM (4-12)
[2021-07-21 07:09] LABS: Calcium 8.8 MG/DL (8.5-10.1); Osmolality,Calculated 283.1 MOS/KG (273-304); Potassium 3.4 MMOL/L (3.5-5.1); Risk Ratio 3.3; Thyroid Stimulating Hormone 1.85 uIU/ml (0.358-3.74); VLDL Cholesterol 19.6 MG/DL
[2021-07-21] MEDS ORDERED: POTASSIUM CHLORIDE 20 MEQ TABLET PO ONE (08:30)
[2021-07-21] MEDS: APIXABAN 5 MG TABLET PO SCH ×2 (09:26→21:03)
[2021-07-21] MEDS: FUROSEMIDE 40 MG/4 ML VIAL IV SCH (09:26)
[2021-07-21] MEDS: DOCUSATE SODIUM 100 MG CAPSULE PO SCH ×2 (09:27→21:03)
[2021-07-21] MEDS ORDERED: POLYETHYLENE GLYCOL POWDER 17 GM PACK PO PRN (09:29)
[2021-07-21] MEDS: CHOLECALCIFEROL 5,000 UNIT TABLET PO SCH (10:23)
[2021-07-21] MEDS: FERROUS SULFATE 325 MG TABLET PO SCH (10:23)
[2021-07-21] MEDS: MULTIVITAMIN (CENTRUM) TABLET PO SCH (10:23)
[2021-07-21] MEDS: CALCIUM (CARBONATE)/VITAMIN D 600 MG-400 UNIT TABLET PO SCH (10:23)
[2021-07-21] MEDS: THEOPHYLLINE ER 300 MG TABLET PO SCH ×2 (10:24→21:03)
[2021-07-21] MEDS: methylPREDNISolone SOD SUC 40 MG/1 ML VIAL IV SCH ×2 (10:24→21:55)
[2021-07-21] MEDS: PANTOPRAZOLE 40 MG TABLET PO SCH (10:26)
[2021-07-21] MEDS: MONTELUKAST 10 MG TABLET PO SCH (21:03)
[2021-07-21] MEDS: METOPROLOL TARTRATE 25 MG TABLET PO SCH (21:05)
[2021-07-21] MEDS: ALBUTEROL 0.4 MG/ML 30 ML/BOTTLE PO SCH (21:06)
[2021-07-22] MEDS: ALBUTEROL/IPRATROPIUM 3 ML NEB RESP TX SCH ×4 (00:59→19:40)
[2021-07-22] MEDS: CLINDAMYCIN INJ 300 MG/50 ML PREMIX IV SCH ×4 (03:10→21:06)
[2021-07-22 05:33] LABS: Basophils % 0.3 % (0.0-0.8); Hematocrit 40.6 VOL% (35.7-47.0); Hemoglobin 12.5 GM/DL (12.0-16.0); Immature Granulocytes % 0.4 %; Immature Granulocytes Absolute 0.03 #; Lymphocytes # 0.5 10*3/uL (1.4-4.0); Lymphocytes % 7.5 % (21.3-54.2); Mean Corpuscular HGB Conc 30.8 GM/DL (32-36); Mean Corpuscular Volume 86.8 FL (87-102); Mean Platelet Volume 10.2 FL (9.6-12.0); Monocytes % 2.3 % (1.7-12.7); Neutrophils % 89.5 % (38.7-73.9); Platelet Count 213 T/CUMM (130-400); Red Blood Count 4.68 MC/CUMM (3.8-5.5); Red Cell Distribution Width 13.7 % (9.3-17.3)
[2021-07-22 06:01] LABS: Calcium 9.8 MG/DL (8.5-10.1); Osmolality,Calculated 279.7 MOS/KG (273-304); Potassium 4.4 MMOL/L (3.5-5.1)
[2021-07-22] MEDS ORDERED: FUROSEMIDE 40 MG/4 ML VIAL IV SCH (09:00)
[2021-07-22] MEDS: LACTATED RINGERS 1,000 ML IV SCH (09:42)
[2021-07-22] MEDS: CHOLECALCIFEROL 5,000 UNIT TABLET PO SCH (09:43)
[2021-07-22] MEDS: DOCUSATE SODIUM 100 MG CAPSULE PO SCH ×2 (09:43→21:05)
[2021-07-22] MEDS: CALCIUM (CARBONATE)/VITAMIN D 600 MG-400 UNIT TABLET PO SCH (09:44)
[2021-07-22] MEDS: THEOPHYLLINE ER 300 MG TABLET PO SCH ×2 (09:44→21:04)
[2021-07-22] MEDS: FERROUS SULFATE 325 MG TABLET PO SCH (09:44)
[2021-07-22] MEDS: methylPREDNISolone SOD SUC 40 MG/1 ML VIAL IV SCH ×2 (09:44→21:39)
[2021-07-22] MEDS: THYROID 60 MG TABLET PO SCH (09:44)
[2021-07-22] MEDS: ASPIRIN EC 81 MG TABLET PO SCH (09:45)
[2021-07-22] MEDS: MULTIVITAMIN (CENTRUM) TABLET PO SCH (09:45)
[2021-07-22] MEDS: APIXABAN 5 MG TABLET PO SCH ×2 (09:45→21:05)
[2021-07-22] MEDS: METOPROLOL TARTRATE 25 MG TABLET PO SCH ×2 (09:45→21:05)
[2021-07-22] MEDS: PANTOPRAZOLE 40 MG TABLET PO SCH (09:45)
[2021-07-22] MEDS: ALBUTEROL 0.4 MG/ML 30 ML/BOTTLE PO SCH ×2 (09:45→21:06)
[2021-07-22] MEDS: MONTELUKAST 10 MG TABLET PO SCH (21:05)
[2021-07-23] MEDS: LACTATED RINGERS 1,000 ML IV SCH (00:51)
[2021-07-23] MEDS: ALBUTEROL/IPRATROPIUM 3 ML NEB RESP TX SCH ×2 (01:35→08:18)
[2021-07-23] MEDS: CLINDAMYCIN INJ 300 MG/50 ML PREMIX IV SCH ×2 (04:46→10:28)
[2021-07-23 05:57] LABS: Basophils % 0.2 % (0.0-0.8); Hematocrit 39.5 VOL% (35.7-47.0); Hemoglobin 12.1 GM/DL (12.0-16.0); Immature Granulocytes % 0.5 %; Immature Granulocytes Absolute 0.05 #; Lymphocytes # 0.8 10*3/uL (1.4-4.0); Lymphocytes % 8.7 % (21.3-54.2); Mean Corpuscular HGB Conc 30.6 GM/DL (32-36); Mean Corpuscular Volume 89.2 FL (87-102); Mean Platelet Volume 10.1 FL (9.6-12.0); Neutrophils % 86.6 % (38.7-73.9); Platelet Count 224 T/CUMM (130-400); Red Blood Count 4.43 MC/CUMM (3.8-5.5); Red Cell Distribution Width 13.7 % (9.3-17.3); White Blood Count 9.3 T/CUMM (4-12)
[2021-07-23 07:06] LABS: Calcium 9.7 MG/DL (8.5-10.1); Osmolality,Calculated 282.5 MOS/KG (273-304); Potassium 4.4 MMOL/L (3.5-5.1)
[2021-07-23] MEDS ORDERED: INFLUENZA VIRUS VACCINE 0.5 ML SYRINGE IM ONE (09:46)
[2021-07-23] MEDS: APIXABAN 5 MG TABLET PO SCH (10:24)
[2021-07-23] MEDS: DOCUSATE SODIUM 100 MG CAPSULE PO SCH (10:24)
[2021-07-23] MEDS: methylPREDNISolone SOD SUC 40 MG/1 ML VIAL IV SCH (10:24)
[2021-07-23] MEDS: MULTIVITAMIN (CENTRUM) TABLET PO SCH (10:25)
[2021-07-23] MEDS: ASPIRIN EC 81 MG TABLET PO SCH (10:25)
[2021-07-23] MEDS: CALCIUM (CARBONATE)/VITAMIN D 600 MG-400 UNIT TABLET PO SCH (10:25)
[2021-07-23] MEDS: CHOLECALCIFEROL 5,000 UNIT TABLET PO SCH (10:26)
[2021-07-23] MEDS: THYROID 60 MG TABLET PO SCH (10:26)
[2021-07-23] MEDS: METOPROLOL TARTRATE 25 MG TABLET PO SCH (10:26)
[2021-07-23] MEDS: FERROUS SULFATE 325 MG TABLET PO SCH (10:27)
[2021-07-23] MEDS: PANTOPRAZOLE 40 MG TABLET PO SCH (10:27)
[2021-07-23] MEDS: THEOPHYLLINE ER 300 MG TABLET PO SCH (10:27)
[2021-07-23] MEDS: ALBUTEROL 0.4 MG/ML 30 ML/BOTTLE PO SCH (10:29)
[2021-07-23 12:04] VITALS: BP 139/83
== END 2021-07-23 13:45 | disposition home health service (06) | DRG 603 ==
LOC: N.ED 10:39 → N.EDINP 10:39 → SUATTDRO 14:36 → N.EDINP 16:43 → N.3E 16:57
PROVIDERS: ADMIT Internal Medicine; ATTEND Internal Medicine